=== PATIENT | female | born 1970 | race Caucasian/White ===

== ENCOUNTER 2019-02-11 16:23 | Inpatient (IN) | payer MEDICARE, MEDICAID ==
[~2019-02-11] VITALS: Ht 154.9 cm; Wt 69.9 kg
[2019-02-11] MEDS ORDERED: TRAZ-252 PO (16:30)
[2019-02-11] MEDS ORDERED: LAMO25TA25 PO (16:30)
[2019-02-11] MEDS ORDERED: BENZ1TAB10 PO (16:30)
[2019-02-11] MEDS ORDERED: QUET200T PO (16:30)
[2019-02-11] MEDS ORDERED: CHLO50 PO (16:30)
[2019-02-11] MEDS ORDERED: DIVA500T52 PO (16:30)
[2019-02-11] MEDS ORDERED: LEVO100 PO (16:30)
[2019-02-11] MEDS ORDERED: LORazepam 2 MG TABLET PO PRN (17:00)
[2019-02-11] MEDS ORDERED: HALOPERIDOL 5 MG TABLET PO PRN (17:00)
[2019-02-11] MEDS ORDERED: ZOLPIDEM TARTRATE 10 MG TABLET PO PRN (17:00)
[2019-02-11] MEDS ORDERED: INFLUENZA VIRUS VACCINE QVS 2019-20 (3YR+)/PF 60 MCG/0.5 ML SYRINGE IM ONE (18:30)
[2019-02-11 19:38] VITALS: BP 121/75
[2019-02-12 00:03] VITALS: BP 131/80
[2019-02-12 07:43] LABS: BASOPHILS % (AUTO) 0.8 % (0.0-2.0); EOSINOPHILS % (AUTO) 2.1 % (1.0-6.0); HEMATOCRIT 32.7 % (36-46); LYMPHOCYTES # (AUTO) 2.7 K/uL (1.0-4.8); LYMPHOCYTES % (AUTO) 44.6 % (22.0-44.0); MEAN CORPUSCULAR HGB CONC 33.8 G/dL (31.0-37.0); MEAN CORPUSCULAR VOLUME 86 fL (80-100); MONOCYTES # (AUTO) 0.7 K/uL (0.1-1.0); MONOCYTES % (AUTO) 11.2 % (2.0-9.0); NEUTROPHILS # (AUTO) 2.5 K/uL (1.8-7.7); NEUTROPHILS % (AUTO) 41.3 % (40.0-70.0); PLATELET COUNT (AUTO) 250 K/uL (150-450); RED BLOOD CELL COUNT(AUTO) 3.81 MIL/uL (4.00-5.20); RED CELL DISTRIBUTION WIDTH 14.9 % (11.5-14.5)
[2019-02-12 07:51] LABS: HEMOGLOBIN A1C 5.4 % (4.5-6.2)
[2019-02-12 08:00] VITALS: BP 109/64
[2019-02-12 08:13] LABS: ALANINE AMINOTRANSFERASE 11 U/L (12-78); ALBUMIN 3.3 g/dL (3.4-5.0); ALKALINE PHOSPHATASE 66 U/L (46-116); ANION GAP 4 mmol/L (8-16); ASPARTATE AMINOTRANSFERASE 11 U/L (15-37); BILIRUBIN,TOTAL 0.2 mg/dL (0.1-1.0); CALCIUM, TOTAL 8.7 mg/dL (8.8-10.5); CARBON DIOXIDE 30 mmol/L (22-29); CHLORIDE 105 mmol/L (98-107); CHOL/HDL RATIO 2.8 (3.9-5.7); CHOLESTEROL 150 mg/dL (131-200); CREATININE 0.83 mg/dL (0.60-1.30); FREE T4 (FREE THYROXINE) 1.12 ng/dL (0.76-1.46); GLOMERULAR FILTR. RATE CALC > 60 mL/min (>60); GLUCOSE,RANDOM 83 mg/dL (70-110); HCG,QUANTITATIVE 3 mIU/mL (0-6); HDL CHOLESTEROL 53 mg/dL (40-60); LDL CHOL (CALC.) 88 mg/dL (0-130); POTASSIUM 4.5 mmol/L (3.5-5.1); SODIUM SERUM 139 mmol/L (136-145); TOTAL PROTEIN, SERUM 6.5 g/dL (6.4-8.2); TRIGLYCERIDES 43 mg/dL (15-150); UREA NITROGEN, BLOOD 17 mg/dL (7-18)
[2019-02-12] MEDS ORDERED: CloNIDine HCL 0.1 MG TABLET PO PRN (13:30)
[2019-02-12] MEDS ORDERED: MAGNESIUM HYDROXIDE SUSPENSION 30 ML UDCUP PO PRN (13:30)
[2019-02-12] MEDS ORDERED: PETROLATUM,WHITE 28 GM JELLY TP PRN (13:30)
[2019-02-12] MEDS ORDERED: ONDANSETRON HCL 4 MG TABLET PO PRN (13:30)
[2019-02-12] MEDS ORDERED: IBUPROFEN 400 MG TABLET PO PRN (13:30)
[2019-02-12] MEDS ORDERED: LOPERAMIDE HCL 2 MG CAPSULE PO PRN (13:30)
[2019-02-12] MEDS ORDERED: ALBUTEROL SULFATE HFA 90 MCG/PUFF 8 GM INHALER IH PRN (13:30)
[2019-02-12] MEDS ORDERED: NICOTINE 14 MG/24 HOUR PATCH TD PRN (13:30)
[2019-02-12] MEDS ORDERED: MAG HYDROX/AL HYDROX/SIMETH ES 30 ML SUSPENSION UDCUP PO PRN (13:30)
[2019-02-12] MEDS ORDERED: GuaiFENesin/D-METHORPHAN [SUGAR-FREE] 200-20MG/10 ML SYRUP UDCUP PO PRN (13:30)
[2019-02-12] MEDS ORDERED: ACETAMINOPHEN 325 MG TABLET PO PRN (13:30)
[2019-02-12 16:09] VITALS: BP 112/68
[2019-02-12] MEDS: BENZTROPINE MESYLATE 1 MG TABLET PO SCH (16:09)
[2019-02-12] MEDS: DIVALPROEX SODIUM 500 MG ER TABLET PO SCH (16:09)
[2019-02-12] MEDS: ChlorproMAZINE HCL 50 MG TABLET PO SCH (16:34)
[2019-02-12 16:45] LABS: GLUCOMETER DEV NAME(LOC) BV2X.; GLUCOSE,POINT OF CARE 192 MG/DL (70-110)
[2019-02-12] MEDS: QUEtiapine FUMARATE 200 MG TABLET PO SCH (20:21)
[2019-02-12] MEDS: TraZODone HCL 50 MG TABLET PO SCH (20:21)
[2019-02-13 00:05] VITALS: BP 132/79
[2019-02-13] MEDS: LEVOTHYROXINE SODIUM 100 MCG TABLET PO SCH (06:43)
[2019-02-13 08:07] VITALS: BP 144/76
[2019-02-13] MEDS: ChlorproMAZINE HCL 50 MG TABLET PO SCH ×3 (08:40→16:23)
[2019-02-13] MEDS: DIVALPROEX SODIUM 500 MG ER TABLET PO SCH ×2 (08:40→16:23)
[2019-02-13] MEDS: BENZTROPINE MESYLATE 1 MG TABLET PO SCH ×3 (08:40→16:23)
[2019-02-13] MEDS: MULTIVITAMINS WITH IRON TABLET PO SCH (11:57)
[2019-02-13] MEDS: FERROUS SULFATE 325 MG EC TABLET PO SCH (11:57)
[2019-02-13 16:01] VITALS: BP 110/66
[2019-02-13] MEDS: TraZODone HCL 50 MG TABLET PO SCH (20:08)
[2019-02-13] MEDS: QUEtiapine FUMARATE 200 MG TABLET PO SCH (20:09)
[2019-02-14 05:28] VITALS: BP 104/72
[2019-02-14] MEDS: FERROUS SULFATE 325 MG EC TABLET PO SCH (06:45)
[2019-02-14] MEDS: LEVOTHYROXINE SODIUM 100 MCG TABLET PO SCH (06:45)
[2019-02-14 08:07] VITALS: BP 139/82
[2019-02-14] MEDS: BENZTROPINE MESYLATE 1 MG TABLET PO SCH ×3 (08:11→16:28)
[2019-02-14] MEDS: MULTIVITAMINS WITH IRON TABLET PO SCH (08:12)
[2019-02-14] MEDS: ChlorproMAZINE HCL 50 MG TABLET PO SCH ×3 (08:12→16:28)
[2019-02-14] MEDS: DIVALPROEX SODIUM 500 MG ER TABLET PO SCH ×2 (08:12→16:28)
[2019-02-14 16:06] VITALS: BP 102/60
[2019-02-14] MEDS: TraZODone HCL 50 MG TABLET PO SCH (20:29)
[2019-02-14] MEDS: QUEtiapine FUMARATE 200 MG TABLET PO SCH (20:30)
[2019-02-15 01:43] VITALS: BP 144/91
[2019-02-15] MEDS: LEVOTHYROXINE SODIUM 100 MCG TABLET PO SCH (06:27)
[2019-02-15] MEDS: FERROUS SULFATE 325 MG EC TABLET PO SCH (06:27)
[2019-02-15 08:12] VITALS: BP 123/83
[2019-02-15] MEDS: ChlorproMAZINE HCL 50 MG TABLET PO SCH ×3 (08:58→17:11)
[2019-02-15] MEDS: MULTIVITAMINS WITH IRON TABLET PO SCH (08:58)
[2019-02-15] MEDS: DIVALPROEX SODIUM 500 MG ER TABLET PO SCH ×2 (08:58→17:11)
[2019-02-15] MEDS: BENZTROPINE MESYLATE 1 MG TABLET PO SCH ×3 (08:58→17:11)
[2019-02-15 16:07] VITALS: BP 120/75
[2019-02-15] MEDS: QUEtiapine FUMARATE 200 MG TABLET PO SCH (21:34)
[2019-02-15] MEDS: TraZODone HCL 50 MG TABLET PO SCH (21:34)
[2019-02-16 00:13] VITALS: BP 130/77
[2019-02-16] MEDS: FERROUS SULFATE 325 MG EC TABLET PO SCH ×2 (06:33→17:14)
[2019-02-16] MEDS: LEVOTHYROXINE SODIUM 100 MCG TABLET PO SCH (06:33)
[2019-02-16] MEDS: ChlorproMAZINE HCL 50 MG TABLET PO SCH ×3 (08:26→17:13)
[2019-02-16] MEDS: BENZTROPINE MESYLATE 1 MG TABLET PO SCH ×3 (08:26→17:14)
[2019-02-16] MEDS: MULTIVITAMINS WITH IRON TABLET PO SCH (08:26)
[2019-02-16] MEDS: DIVALPROEX SODIUM 500 MG ER TABLET PO SCH ×2 (08:26→17:13)
[2019-02-16 08:38] VITALS: BP 140/73
[2019-02-16 16:01] VITALS: BP 115/75
[2019-02-16] MEDS: QUEtiapine FUMARATE 200 MG TABLET PO SCH (20:19)
[2019-02-16] MEDS: TraZODone HCL 50 MG TABLET PO SCH (20:19)
[2019-02-17 00:01] VITALS: BP 126/80
[2019-02-17] MEDS: FERROUS SULFATE 325 MG EC TABLET PO SCH ×2 (06:57→16:46)
[2019-02-17] MEDS: LEVOTHYROXINE SODIUM 100 MCG TABLET PO SCH (06:57)
[2019-02-17 08:07] VITALS: BP 104/65
[2019-02-17] MEDS: DIVALPROEX SODIUM 500 MG ER TABLET PO SCH ×2 (08:55→16:46)
[2019-02-17] MEDS: ChlorproMAZINE HCL 50 MG TABLET PO SCH ×3 (08:55→16:46)
[2019-02-17] MEDS: MULTIVITAMINS WITH IRON TABLET PO SCH (08:55)
[2019-02-17] MEDS: BENZTROPINE MESYLATE 1 MG TABLET PO SCH ×3 (08:56→16:46)
[2019-02-17] MEDS ORDERED: OMEPRAZOLE 20 MG CAPSULE PO PRN (15:30)
[2019-02-17 16:00] VITALS: BP 111/83
[2019-02-17] MEDS: QUEtiapine FUMARATE 200 MG TABLET PO SCH (20:03)
[2019-02-17] MEDS: TraZODone HCL 50 MG TABLET PO SCH (20:03)
[2019-02-18 03:11] VITALS: BP 110/71
[2019-02-18] MEDS: FERROUS SULFATE 325 MG EC TABLET PO SCH ×2 (06:36→16:25)
[2019-02-18] MEDS: LEVOTHYROXINE SODIUM 100 MCG TABLET PO SCH (06:36)
[2019-02-18 08:36] VITALS: BP 120/75
[2019-02-18] MEDS: ChlorproMAZINE HCL 50 MG TABLET PO SCH ×2 (13:00→19:26)
[2019-02-18] MEDS: BENZTROPINE MESYLATE 1 MG TABLET PO SCH ×2 (15:34→19:27)
[2019-02-18 16:33] VITALS: BP 100/68
[2019-02-18] MEDS: MULTIVITAMINS WITH IRON TABLET PO SCH (19:26)
[2019-02-18] MEDS: DIVALPROEX SODIUM 500 MG ER TABLET PO SCH ×2 (19:27→19:36)
[2019-02-18] MEDS: QUEtiapine FUMARATE 200 MG TABLET PO SCH (21:09)
[2019-02-18] MEDS: TraZODone HCL 50 MG TABLET PO SCH (21:09)
[2019-02-19 00:09] VITALS: BP 120/71
[2019-02-19] MEDS: FERROUS SULFATE 325 MG EC TABLET PO SCH ×2 (06:30→16:07)
[2019-02-19] MEDS: LEVOTHYROXINE SODIUM 100 MCG TABLET PO SCH (06:30)
[2019-02-19 08:28] VITALS: BP 110/74
[2019-02-19] MEDS: BENZTROPINE MESYLATE 1 MG TABLET PO SCH ×3 (08:49→16:07)
[2019-02-19] MEDS: ChlorproMAZINE HCL 50 MG TABLET PO SCH ×3 (08:49→16:11)
[2019-02-19] MEDS: MULTIVITAMINS WITH IRON TABLET PO SCH (08:49)
[2019-02-19] MEDS: DIVALPROEX SODIUM 500 MG ER TABLET PO SCH ×2 (08:50→16:07)
[2019-02-19 16:08] VITALS: BP 121/76
[2019-02-19] MEDS: TraZODone HCL 50 MG TABLET PO SCH (20:08)
[2019-02-19] MEDS: QUEtiapine FUMARATE 200 MG TABLET PO SCH (20:16)
[2019-02-20 00:46] VITALS: BP 100/61
[2019-02-20] MEDS: LEVOTHYROXINE SODIUM 100 MCG TABLET PO SCH (06:39)
[2019-02-20] MEDS: FERROUS SULFATE 325 MG EC TABLET PO SCH ×2 (06:39→16:30)
[2019-02-20 08:07] VITALS: BP 130/70
[2019-02-20] MEDS: BENZTROPINE MESYLATE 1 MG TABLET PO SCH ×3 (08:37→16:29)
[2019-02-20] MEDS: ChlorproMAZINE HCL 50 MG TABLET PO SCH ×3 (08:37→16:29)
[2019-02-20] MEDS: MULTIVITAMINS WITH IRON TABLET PO SCH (08:37)
[2019-02-20] MEDS: DIVALPROEX SODIUM 500 MG ER TABLET PO SCH ×2 (08:37→16:29)
[2019-02-20 16:02] VITALS: BP 125/87
[2019-02-20] MEDS: TraZODone HCL 50 MG TABLET PO SCH (20:33)
[2019-02-20] MEDS: QUEtiapine FUMARATE 200 MG TABLET PO SCH (20:34)
[2019-02-21 00:25] VITALS: BP 113/76
[2019-02-21] MEDS: LEVOTHYROXINE SODIUM 100 MCG TABLET PO SCH (06:32)
[2019-02-21] MEDS: FERROUS SULFATE 325 MG EC TABLET PO SCH ×2 (06:32→16:26)
[2019-02-21 08:18] VITALS: BP 127/67
[2019-02-21] MEDS: MULTIVITAMINS WITH IRON TABLET PO SCH (08:57)
[2019-02-21] MEDS: DIVALPROEX SODIUM 500 MG ER TABLET PO SCH ×2 (08:57→16:26)
[2019-02-21] MEDS: ChlorproMAZINE HCL 50 MG TABLET PO SCH ×3 (08:57→16:40)
[2019-02-21] MEDS: BENZTROPINE MESYLATE 1 MG TABLET PO SCH ×3 (08:57→16:26)
[2019-02-21 16:27] VITALS: BP 109/64
[2019-02-21] MEDS: TraZODone HCL 50 MG TABLET PO SCH (20:42)
[2019-02-21] MEDS: QUEtiapine FUMARATE 200 MG TABLET PO SCH (20:43)
[2019-02-22 00:27] VITALS: BP 110/70
[2019-02-22] MEDS: LEVOTHYROXINE SODIUM 100 MCG TABLET PO SCH (06:30)
[2019-02-22] MEDS: FERROUS SULFATE 325 MG EC TABLET PO SCH ×2 (07:00→17:14)
[2019-02-22 08:23] VITALS: BP 130/63
[2019-02-22] MEDS: ChlorproMAZINE HCL 50 MG TABLET PO SCH ×3 (08:36→17:39)
[2019-02-22] MEDS: BENZTROPINE MESYLATE 1 MG TABLET PO SCH ×3 (08:36→17:14)
[2019-02-22] MEDS: DIVALPROEX SODIUM 500 MG ER TABLET PO SCH ×2 (08:36→17:14)
[2019-02-22] MEDS: MULTIVITAMINS WITH IRON TABLET PO SCH (08:36)
[2019-02-22 16:04] VITALS: BP 122/88
[2019-02-22] MEDS: TraZODone HCL 50 MG TABLET PO SCH (21:03)
[2019-02-22] MEDS: QUEtiapine FUMARATE 200 MG TABLET PO SCH (21:03)
[2019-02-23 00:28] VITALS: BP 124/78
[2019-02-23] MEDS: LEVOTHYROXINE SODIUM 100 MCG TABLET PO SCH (07:14)
[2019-02-23] MEDS: FERROUS SULFATE 325 MG EC TABLET PO SCH ×2 (07:14→16:31)
[2019-02-23 08:07] VITALS: BP 139/89
[2019-02-23] MEDS: DIVALPROEX SODIUM 500 MG ER TABLET PO SCH ×2 (08:50→16:31)
[2019-02-23] MEDS: MULTIVITAMINS WITH IRON TABLET PO SCH (08:50)
[2019-02-23] MEDS: BENZTROPINE MESYLATE 1 MG TABLET PO SCH ×3 (08:50→16:31)
[2019-02-23] MEDS: ChlorproMAZINE HCL 50 MG TABLET PO SCH ×3 (08:50→16:31)
[2019-02-23 16:16] VITALS: BP 109/62
[2019-02-23] MEDS: QUEtiapine FUMARATE 200 MG TABLET PO SCH (20:28)
[2019-02-23] MEDS: TraZODone HCL 50 MG TABLET PO SCH (20:28)
[2019-02-24 05:36] VITALS: BP 149/88
[2019-02-24] MEDS: LEVOTHYROXINE SODIUM 100 MCG TABLET PO SCH (06:23)
[2019-02-24] MEDS: FERROUS SULFATE 325 MG EC TABLET PO SCH ×2 (06:56→16:30)
[2019-02-24 08:13] VITALS: BP 105/69
[2019-02-24] MEDS: BENZTROPINE MESYLATE 1 MG TABLET PO SCH ×3 (08:28→16:30)
[2019-02-24] MEDS: MULTIVITAMINS WITH IRON TABLET PO SCH (08:28)
[2019-02-24] MEDS: DIVALPROEX SODIUM 500 MG ER TABLET PO SCH ×2 (08:28→16:30)
[2019-02-24] MEDS: ChlorproMAZINE HCL 50 MG TABLET PO SCH ×3 (08:29→16:30)
[2019-02-24] MEDS: DOCUSATE SODIUM 100 MG CAPSULE PO PRN (13:05)
[2019-02-24 16:05] VITALS: BP 112/66
[2019-02-24] MEDS: QUEtiapine FUMARATE 200 MG TABLET PO SCH (20:32)
[2019-02-24] MEDS: TraZODone HCL 50 MG TABLET PO SCH (20:32)
[2019-02-25 05:46] VITALS: BP 124/78
[2019-02-25] MEDS: LEVOTHYROXINE SODIUM 100 MCG TABLET PO SCH (06:42)
[2019-02-25] MEDS: FERROUS SULFATE 325 MG EC TABLET PO SCH ×2 (06:42→16:33)
[2019-02-25 07:47] LABS: BASOPHILS % (AUTO) 0.6 % (0.0-2.0); EOSINOPHILS % (AUTO) 3.4 % (1.0-6.0); HEMATOCRIT 32.2 % (36-46); HEMOGLOBIN 10.9 g/dL (12.0-16.0); LYMPHOCYTES # (AUTO) 2.4 K/uL (1.0-4.8); LYMPHOCYTES % (AUTO) 44.7 % (22.0-44.0); MEAN CORPUSCULAR HEMOGLOBIN 29.1 pg (26.0-34.0); MEAN CORPUSCULAR HGB CONC 33.8 G/dL (31.0-37.0); MEAN CORPUSCULAR VOLUME 86 fL (80-100); MONOCYTES # (AUTO) 0.5 K/uL (0.1-1.0); MONOCYTES % (AUTO) 9.4 % (2.0-9.0); NEUTROPHILS # (AUTO) 2.3 K/uL (1.8-7.7); NEUTROPHILS % (AUTO) 41.9 % (40.0-70.0); PLATELET COUNT (AUTO) 346 K/uL (150-450); RED BLOOD CELL COUNT(AUTO) 3.75 MIL/uL (4.00-5.20); RED CELL DISTRIBUTION WIDTH 14.7 % (11.5-14.5)
[2019-02-25 08:48] VITALS: BP 128/70
[2019-02-25] MEDS: BENZTROPINE MESYLATE 1 MG TABLET PO SCH ×3 (08:52→16:33)
[2019-02-25] MEDS: DIVALPROEX SODIUM 500 MG ER TABLET PO SCH (08:52)
[2019-02-25] MEDS: ChlorproMAZINE HCL 50 MG TABLET PO SCH ×3 (08:52→16:33)
[2019-02-25] MEDS: MULTIVITAMINS WITH IRON TABLET PO SCH (08:52)
[2019-02-25 16:08] VITALS: BP 107/62
[2019-02-25] MEDS: TraZODone HCL 50 MG TABLET PO SCH (20:32)
[2019-02-25] MEDS: DIVALPROEX SODIUM 250 MG DR TABLET PO SCH (20:32)
[2019-02-25] MEDS: QUEtiapine FUMARATE 200 MG TABLET PO SCH (20:32)
[2019-02-26 00:15] VITALS: BP 129/82
[2019-02-26] MEDS: LEVOTHYROXINE SODIUM 100 MCG TABLET PO SCH (06:51)
[2019-02-26] MEDS: FERROUS SULFATE 325 MG EC TABLET PO SCH ×2 (06:51→16:01)
[2019-02-26 08:11] VITALS: BP 102/68
[2019-02-26] MEDS: MULTIVITAMINS WITH IRON TABLET PO SCH (08:56)
[2019-02-26] MEDS: BENZTROPINE MESYLATE 1 MG TABLET PO SCH ×3 (08:56→16:02)
[2019-02-26] MEDS: DIVALPROEX SODIUM 250 MG DR TABLET PO SCH ×2 (08:57→20:25)
[2019-02-26] MEDS: ChlorproMAZINE HCL 50 MG TABLET PO SCH ×3 (08:58→16:01)
[2019-02-26 16:56] VITALS: BP 111/76
[2019-02-26] MEDS: QUEtiapine FUMARATE 200 MG TABLET PO SCH (20:24)
[2019-02-26] MEDS: TraZODone HCL 50 MG TABLET PO SCH (20:24)
[2019-02-27 06:07] VITALS: BP 117/69
[2019-02-27] MEDS: LEVOTHYROXINE SODIUM 100 MCG TABLET PO SCH (06:30)
[2019-02-27] MEDS: FERROUS SULFATE 325 MG EC TABLET PO SCH ×2 (06:51→16:36)
[2019-02-27 08:17] VITALS: BP 110/64
[2019-02-27] MEDS: ChlorproMAZINE HCL 50 MG TABLET PO SCH ×3 (08:30→16:36)
[2019-02-27] MEDS: MULTIVITAMINS WITH IRON TABLET PO SCH (08:30)
[2019-02-27] MEDS: DIVALPROEX SODIUM 250 MG DR TABLET PO SCH ×2 (08:31→20:33)
[2019-02-27] MEDS: BENZTROPINE MESYLATE 1 MG TABLET PO SCH ×3 (08:31→16:36)
[2019-02-27 16:25] VITALS: BP 123/68
[2019-02-27] MEDS: TraZODone HCL 50 MG TABLET PO SCH (20:32)
[2019-02-27] MEDS: QUEtiapine FUMARATE 200 MG TABLET PO SCH (20:32)
[2019-02-28] MEDS: FERROUS SULFATE 325 MG EC TABLET PO SCH ×2 (06:31→16:35)
[2019-02-28] MEDS: LEVOTHYROXINE SODIUM 100 MCG TABLET PO SCH (06:31)
[2019-02-28 08:19] VITALS: BP 115/68
[2019-02-28] MEDS: MULTIVITAMINS WITH IRON TABLET PO SCH (09:01)
[2019-02-28] MEDS: DIVALPROEX SODIUM 250 MG DR TABLET PO SCH ×2 (09:01→20:32)
[2019-02-28] MEDS: BENZTROPINE MESYLATE 1 MG TABLET PO SCH ×3 (09:01→16:35)
[2019-02-28] MEDS: ChlorproMAZINE HCL 50 MG TABLET PO SCH ×3 (09:03→16:36)
[2019-02-28 16:15] VITALS: BP 112/72
[2019-02-28] MEDS: TraZODone HCL 50 MG TABLET PO SCH (20:32)
[2019-02-28] MEDS: QUEtiapine FUMARATE 200 MG TABLET PO SCH (20:32)
[2019-03-01 00:29] VITALS: BP 114/66
[2019-03-01] MEDS: LEVOTHYROXINE SODIUM 100 MCG TABLET PO SCH (06:22)
[2019-03-01] MEDS: FERROUS SULFATE 325 MG EC TABLET PO SCH ×2 (06:22→16:14)
[2019-03-01 08:12] VITALS: BP 121/72
[2019-03-01] MEDS: BENZTROPINE MESYLATE 1 MG TABLET PO SCH ×3 (08:14→16:13)
[2019-03-01] MEDS: MULTIVITAMINS WITH IRON TABLET PO SCH (08:14)
[2019-03-01] MEDS: ChlorproMAZINE HCL 50 MG TABLET PO SCH ×3 (08:15→16:14)
[2019-03-01] MEDS: DIVALPROEX SODIUM 250 MG DR TABLET PO SCH ×2 (08:15→20:35)
[2019-03-01 16:13] VITALS: BP 116/78
[2019-03-01] MEDS: TraZODone HCL 50 MG TABLET PO SCH (20:35)
[2019-03-01] MEDS: QUEtiapine FUMARATE 200 MG TABLET PO SCH (20:36)
[2019-03-02 00:17] VITALS: BP 111/76
[2019-03-02] MEDS: LEVOTHYROXINE SODIUM 100 MCG TABLET PO SCH (06:17)
[2019-03-02] MEDS: FERROUS SULFATE 325 MG EC TABLET PO SCH ×2 (06:17→16:34)
[2019-03-02 08:17] VITALS: BP 137/88
[2019-03-02] MEDS: BENZTROPINE MESYLATE 1 MG TABLET PO SCH ×3 (08:40→16:34)
[2019-03-02] MEDS: MULTIVITAMINS WITH IRON TABLET PO SCH (08:40)
[2019-03-02] MEDS: ChlorproMAZINE HCL 50 MG TABLET PO SCH ×3 (08:40→16:34)
[2019-03-02] MEDS: DIVALPROEX SODIUM 250 MG DR TABLET PO SCH ×2 (08:40→21:24)
[2019-03-02 16:33] VITALS: BP 113/81
[2019-03-02] MEDS: TraZODone HCL 50 MG TABLET PO SCH (21:23)
[2019-03-02] MEDS: QUEtiapine FUMARATE 200 MG TABLET PO SCH (21:23)
[2019-03-03 06:55] VITALS: BP 100/72
[2019-03-03] MEDS: FERROUS SULFATE 325 MG EC TABLET PO SCH ×2 (07:07→16:07)
[2019-03-03] MEDS: LEVOTHYROXINE SODIUM 100 MCG TABLET PO SCH (07:07)
[2019-03-03 08:13] VITALS: BP 142/92
[2019-03-03] MEDS: BENZTROPINE MESYLATE 1 MG TABLET PO SCH ×3 (08:40→16:07)
[2019-03-03] MEDS: ChlorproMAZINE HCL 50 MG TABLET PO SCH ×3 (08:40→16:07)
[2019-03-03] MEDS: DIVALPROEX SODIUM 250 MG DR TABLET PO SCH ×2 (08:40→20:20)
[2019-03-03] MEDS: MULTIVITAMINS WITH IRON TABLET PO SCH (08:42)
[2019-03-03] MEDS: DOCUSATE SODIUM 100 MG CAPSULE PO PRN (14:28)
[2019-03-03 16:27] VITALS: BP 121/88
[2019-03-03] MEDS: QUEtiapine FUMARATE 200 MG TABLET PO SCH (20:20)
[2019-03-03] MEDS: TraZODone HCL 50 MG TABLET PO SCH (20:20)
[2019-03-04] MEDS: FERROUS SULFATE 325 MG EC TABLET PO SCH ×2 (06:20→16:38)
[2019-03-04] MEDS: LEVOTHYROXINE SODIUM 100 MCG TABLET PO SCH (06:20)
[2019-03-04 07:39] VITALS: BP 120/86
[2019-03-04 08:27] VITALS: BP 127/80
[2019-03-04] MEDS: MULTIVITAMINS WITH IRON TABLET PO SCH (09:27)
[2019-03-04] MEDS: DIVALPROEX SODIUM 500 MG DR TABLET PO SCH (09:27)
[2019-03-04] MEDS: ChlorproMAZINE HCL 50 MG TABLET PO SCH ×3 (09:27→16:38)
[2019-03-04] MEDS: BENZTROPINE MESYLATE 1 MG TABLET PO SCH ×3 (09:28→16:38)
[2019-03-04 16:12] VITALS: BP 112/62
[2019-03-04] MEDS: QUEtiapine FUMARATE 200 MG TABLET PO SCH (20:37)
[2019-03-04] MEDS: TraZODone HCL 50 MG TABLET PO SCH (20:37)
[2019-03-04] MEDS: DIVALPROEX SODIUM 250 MG DR TABLET PO SCH (20:37)
[2019-03-05 00:15] VITALS: BP 121/73
[2019-03-05] MEDS: FERROUS SULFATE 325 MG EC TABLET PO SCH ×2 (06:28→16:47)
[2019-03-05] MEDS: LEVOTHYROXINE SODIUM 100 MCG TABLET PO SCH (06:28)
[2019-03-05 08:18] VITALS: BP 120/77
[2019-03-05] MEDS: MULTIVITAMINS WITH IRON TABLET PO SCH (09:30)
[2019-03-05] MEDS: ChlorproMAZINE HCL 50 MG TABLET PO SCH ×3 (09:31→16:47)
[2019-03-05] MEDS: BENZTROPINE MESYLATE 1 MG TABLET PO SCH ×3 (09:31→16:47)
[2019-03-05] MEDS: DIVALPROEX SODIUM 500 MG DR TABLET PO SCH (09:35)
[2019-03-05 16:15] VITALS: BP 119/71
[2019-03-05] MEDS: TraZODone HCL 50 MG TABLET PO SCH (20:23)
[2019-03-05] MEDS: DIVALPROEX SODIUM 250 MG DR TABLET PO SCH (20:23)
[2019-03-05] MEDS: QUEtiapine FUMARATE 200 MG TABLET PO SCH (20:25)
[2019-03-06 01:12] VITALS: BP 126/92
[2019-03-06] MEDS: LEVOTHYROXINE SODIUM 100 MCG TABLET PO SCH (07:00)
[2019-03-06] MEDS: FERROUS SULFATE 325 MG EC TABLET PO SCH ×2 (07:04→16:34)
[2019-03-06 08:13] VITALS: BP 130/78
[2019-03-06] MEDS: DIVALPROEX SODIUM 500 MG DR TABLET PO SCH (09:25)
[2019-03-06] MEDS: MULTIVITAMINS WITH IRON TABLET PO SCH (09:25)
[2019-03-06] MEDS: BENZTROPINE MESYLATE 1 MG TABLET PO SCH ×3 (09:25→16:34)
[2019-03-06] MEDS: ChlorproMAZINE HCL 50 MG TABLET PO SCH ×3 (09:25→16:34)
[2019-03-06 16:08] VITALS: BP 115/78
[2019-03-06] MEDS: DIVALPROEX SODIUM 250 MG DR TABLET PO SCH (20:39)
[2019-03-06] MEDS: TraZODone HCL 50 MG TABLET PO SCH (20:39)
[2019-03-06] MEDS: QUEtiapine FUMARATE 200 MG TABLET PO SCH (20:39)
[2019-03-07] MEDS: LEVOTHYROXINE SODIUM 100 MCG TABLET PO SCH (06:26)
[2019-03-07] MEDS: FERROUS SULFATE 325 MG EC TABLET PO SCH ×2 (06:27→16:18)
[2019-03-07 08:20] VITALS: BP 135/64
[2019-03-07] MEDS: ChlorproMAZINE HCL 50 MG TABLET PO SCH ×3 (08:44→16:17)
[2019-03-07] MEDS: DIVALPROEX SODIUM 500 MG DR TABLET PO SCH (08:44)
[2019-03-07] MEDS: BENZTROPINE MESYLATE 1 MG TABLET PO SCH ×3 (08:44→16:17)
[2019-03-07] MEDS: MULTIVITAMINS WITH IRON TABLET PO SCH (08:44)
[2019-03-07 16:12] VITALS: BP 119/73
[2019-03-07] MEDS: DIVALPROEX SODIUM 250 MG DR TABLET PO SCH (20:20)
[2019-03-07] MEDS: QUEtiapine FUMARATE 200 MG TABLET PO SCH (20:20)
[2019-03-07] MEDS: TraZODone HCL 50 MG TABLET PO SCH (20:21)
[2019-03-08 00:31] VITALS: BP 112/63
[2019-03-08] MEDS: FERROUS SULFATE 325 MG EC TABLET PO SCH ×2 (07:02→17:18)
[2019-03-08] MEDS: LEVOTHYROXINE SODIUM 100 MCG TABLET PO SCH (07:02)
[2019-03-08 08:11] VITALS: BP 114/62
[2019-03-08] MEDS: MULTIVITAMINS WITH IRON TABLET PO SCH (09:46)
[2019-03-08] MEDS: DIVALPROEX SODIUM 500 MG DR TABLET PO SCH (09:47)
[2019-03-08] MEDS: BENZTROPINE MESYLATE 1 MG TABLET PO SCH ×3 (09:47→17:18)
[2019-03-08] MEDS: ChlorproMAZINE HCL 50 MG TABLET PO SCH ×3 (09:47→17:19)
[2019-03-08 16:36] VITALS: BP 116/71
[2019-03-08] MEDS: QUEtiapine FUMARATE 200 MG TABLET PO SCH (20:42)
[2019-03-08] MEDS: DIVALPROEX SODIUM 250 MG DR TABLET PO SCH (20:42)
[2019-03-08] MEDS: TraZODone HCL 50 MG TABLET PO SCH (20:43)
[2019-03-09 05:33] VITALS: BP 106/71
[2019-03-09] MEDS: LEVOTHYROXINE SODIUM 100 MCG TABLET PO SCH (07:00)
[2019-03-09] MEDS: FERROUS SULFATE 325 MG EC TABLET PO SCH ×2 (07:00→16:38)
[2019-03-09 08:51] VITALS: BP 124/76
[2019-03-09] MEDS: DIVALPROEX SODIUM 500 MG DR TABLET PO SCH (08:52)
[2019-03-09] MEDS: ChlorproMAZINE HCL 50 MG TABLET PO SCH ×3 (08:52→16:37)
[2019-03-09] MEDS: MULTIVITAMINS WITH IRON TABLET PO SCH (08:52)
[2019-03-09] MEDS: BENZTROPINE MESYLATE 1 MG TABLET PO SCH ×3 (08:52→16:37)
[2019-03-09 16:16] VITALS: BP 114/80
[2019-03-09] MEDS: QUEtiapine FUMARATE 200 MG TABLET PO SCH (20:35)
[2019-03-09] MEDS: TraZODone HCL 50 MG TABLET PO SCH (20:35)
[2019-03-09] MEDS: DIVALPROEX SODIUM 250 MG DR TABLET PO SCH (20:36)
[2019-03-10 01:43] VITALS: BP 83/54
[2019-03-10] MEDS: LEVOTHYROXINE SODIUM 100 MCG TABLET PO SCH (07:12)
[2019-03-10] MEDS: FERROUS SULFATE 325 MG EC TABLET PO SCH ×2 (07:12→16:30)
[2019-03-10 08:13] VITALS: BP 119/81
[2019-03-10] MEDS: BENZTROPINE MESYLATE 1 MG TABLET PO SCH ×3 (08:55→16:30)
[2019-03-10] MEDS: MULTIVITAMINS WITH IRON TABLET PO SCH (08:55)
[2019-03-10] MEDS: ChlorproMAZINE HCL 50 MG TABLET PO SCH ×3 (08:55→16:30)
[2019-03-10] MEDS: DIVALPROEX SODIUM 500 MG DR TABLET PO SCH (08:57)
[2019-03-10 16:10] VITALS: BP 110/68
[2019-03-10] MEDS: TraZODone HCL 50 MG TABLET PO SCH (20:32)
[2019-03-10] MEDS: DIVALPROEX SODIUM 250 MG DR TABLET PO SCH (20:32)
[2019-03-10] MEDS: QUEtiapine FUMARATE 200 MG TABLET PO SCH (20:32)
[2019-03-11 06:37] VITALS: BP 106/65
[2019-03-11] MEDS: LEVOTHYROXINE SODIUM 100 MCG TABLET PO SCH (06:45)
[2019-03-11] MEDS: FERROUS SULFATE 325 MG EC TABLET PO SCH ×2 (06:45→16:38)
[2019-03-11] MEDS: ChlorproMAZINE HCL 50 MG TABLET PO SCH ×3 (08:35→16:38)
[2019-03-11] MEDS: MULTIVITAMINS WITH IRON TABLET PO SCH (08:35)
[2019-03-11] MEDS: DIVALPROEX SODIUM 500 MG DR TABLET PO SCH (08:35)
[2019-03-11] MEDS: BENZTROPINE MESYLATE 1 MG TABLET PO SCH ×3 (08:35→16:38)
[2019-03-11 08:40] VITALS: BP 111/63
[2019-03-11 16:06] VITALS: BP 110/66
[2019-03-11] MEDS: TraZODone HCL 50 MG TABLET PO SCH (20:33)
[2019-03-11] MEDS: QUEtiapine FUMARATE 200 MG TABLET PO SCH (20:34)
[2019-03-11] MEDS: DIVALPROEX SODIUM 250 MG DR TABLET PO SCH (20:34)
[2019-03-12 01:15] VITALS: BP 125/86
[2019-03-12] MEDS: FERROUS SULFATE 325 MG EC TABLET PO SCH (06:26)
[2019-03-12] MEDS: LEVOTHYROXINE SODIUM 100 MCG TABLET PO SCH (06:26)
[2019-03-12 08:08] VITALS: BP 127/78
[2019-03-12] MEDS: MULTIVITAMINS WITH IRON TABLET PO SCH (08:58)
[2019-03-12] MEDS: BENZTROPINE MESYLATE 1 MG TABLET PO SCH ×2 (08:59→12:03)
[2019-03-12] MEDS: ChlorproMAZINE HCL 50 MG TABLET PO SCH ×2 (09:02→12:03)
[2019-03-12] MEDS: DIVALPROEX SODIUM 500 MG DR TABLET PO SCH (09:08)
[2019-03-12] MEDS ORDERED: BENZ1TAB10 PO (11:25)
[2019-03-12] MEDS ORDERED: CHLO50 PO (11:26)
[2019-03-12] MEDS ORDERED: VALP250C48 PO ×2 (11:31)
[2019-03-12] MEDS ORDERED: FERR-89 PO (11:31)
[2019-03-12] MEDS ORDERED: QUET200T PO (11:31)
[2019-03-12] MEDS ORDERED: TRAZ-252 PO (11:31)
[2019-03-12] MEDS ORDERED: MVITFE PO (11:32)
== END 2019-03-12 13:20 | disposition home or self-care (01) | DRG 885 ==
LOC: B2X 17:24
DX: F20.0 Paranoid schizophrenia (principal); D64.9 Anemia, unspecified; E03.9 Hypothyroidism, unspecified; G47.00 Insomnia, unspecified; K21.9 Gastro-esophageal reflux disease without esophagitis; K59.00 Constipation, unspecified; Z79.899 Other long term (current) drug therapy; Z91.19 Patient's noncompliance with other medical treatment and regimen; Z23 Encounter for immunization
CPT/HCPCS: 83036; 84439; 84443; 90686

== ENCOUNTER 2019-07-18 17:59 | Inpatient (IN) | payer MEDICARE, MEDICAID ==
[~2019-07-18] VITALS: Ht 162.6 cm; Wt 72.9 kg
[~2019-07-18 17:59] MED LIST: BENZ1TAB10 PO; CHLO50TA41 PO; FERR-89 PO; LEVO100 PO; MVITFE PO; QUET200T PO; TRAZ-252 PO; VALP250C48 PO
[2019-07-18 18:05] VITALS: BP 130/60
[2019-07-18] MEDS ORDERED: CHLO50TA41 PO (18:21)
[2019-07-18] MEDS ORDERED: QUET200T PO (18:21)
[2019-07-18] MEDS ORDERED: DIVA-80 PO (18:21)
[2019-07-18] MEDS ORDERED: LAMO25TA25 PO (18:21)
[2019-07-18] MEDS ORDERED: HALOPERIDOL 5 MG TABLET PO PRN (18:45)
[2019-07-18 19:53] VITALS: BP 118/79
[2019-07-19 00:19] VITALS: BP 109/72
[2019-07-19] MEDS: LEVOTHYROXINE SODIUM 100 MCG TABLET PO SCH (06:10)
[2019-07-19] MEDS ORDERED: MAGNESIUM HYDROXIDE SUSPENSION 30 ML UDCUP PO PRN (07:45)
[2019-07-19] MEDS ORDERED: MAG HYDROX/AL HYDROX/SIMETH ES 30 ML SUSPENSION UDCUP PO PRN (07:45)
[2019-07-19] MEDS ORDERED: GuaiFENesin/D-METHORPHAN [SUGAR-FREE] 200-20MG/10 ML SYRUP UDCUP PO PRN (07:45)
[2019-07-19] MEDS ORDERED: PETROLATUM,WHITE 28 GM JELLY TP PRN (07:45)
[2019-07-19] MEDS ORDERED: NICOTINE 14 MG/24 HOUR PATCH TD PRN (07:45)
[2019-07-19] MEDS ORDERED: ACETAMINOPHEN 325 MG TABLET PO PRN (07:45)
[2019-07-19] MEDS ORDERED: ONDANSETRON HCL 4 MG TABLET PO PRN (07:45)
[2019-07-19] MEDS ORDERED: IBUPROFEN 400 MG TABLET PO PRN (07:45)
[2019-07-19] MEDS ORDERED: LOPERAMIDE HCL 2 MG CAPSULE PO PRN (07:45)
[2019-07-19] MEDS ORDERED: DOCUSATE SODIUM 100 MG CAPSULE PO PRN (07:45)
[2019-07-19] MEDS ORDERED: ALBUTEROL SULFATE HFA 90 MCG/PUFF 8 GM INHALER IH PRN (07:45)
[2019-07-19] MEDS ORDERED: CloNIDine HCL 0.1 MG TABLET PO PRN (07:45)
[2019-07-19 08:02] VITALS: BP 135/80
[2019-07-19 08:06] LABS: BASOPHILS % (AUTO) 0.7 % (0.0-2.0); EOSINOPHILS % (AUTO) 3.2 % (1.0-6.0); HEMATOCRIT 35.3 % (36-46); HEMOGLOBIN 11.7 g/dL (12.0-16.0); LYMPHOCYTES # (AUTO) 2.1 K/uL (1.0-4.8); MEAN CORPUSCULAR HEMOGLOBIN 29.2 pg (26.0-34.0); MEAN CORPUSCULAR HGB CONC 33.3 G/dL (31.0-37.0); MEAN CORPUSCULAR VOLUME 88 fL (80-100); MONOCYTES # (AUTO) 0.5 K/uL (0.1-1.0); MONOCYTES % (AUTO) 11.1 % (2.0-9.0); NEUTROPHILS # (AUTO) 1.8 K/uL (1.8-7.7); PLATELET COUNT (AUTO) 275 K/uL (150-450); RED BLOOD CELL COUNT(AUTO) 4.03 MIL/uL (4.00-5.20); RED CELL DISTRIBUTION WIDTH 13.7 % (11.5-14.5)
[2019-07-19 08:29] LABS: HEMOGLOBIN A1C 5.4 % (3.8-5.6)
[2019-07-19 08:51] LABS: ALANINE AMINOTRANSFERASE 14 U/L (12-78); ALBUMIN 3.5 g/dL (3.4-5.0); ALKALINE PHOSPHATASE 70 U/L (46-116); ANION GAP 7 mmol/L (8-16); ASPARTATE AMINOTRANSFERASE 9 U/L (15-37); BILIRUBIN,TOTAL 0.2 mg/dL (0.1-1.0); CALCIUM, TOTAL 8.8 mg/dL (8.8-10.5); CARBON DIOXIDE 29 mmol/L (22-29); CHLORIDE 105 mmol/L (98-107); CHOL/HDL RATIO 2.9 (3.9-5.7); CHOLESTEROL 139 mg/dL (131-200); CREATININE 0.85 mg/dL (0.60-1.30); FREE T4 (FREE THYROXINE) 1.05 ng/dL (0.76-1.46); GLOMERULAR FILTR. RATE CALC > 60 mL/min (>60); GLUCOSE,RANDOM 84 mg/dL (70-110); HCG,QUANTITATIVE 3 mIU/mL (0-6); HDL CHOLESTEROL 48 mg/dL (40-60); LDL CHOL (CALC.) 80 mg/dL (0-130); POTASSIUM 4.4 mmol/L (3.5-5.1); SODIUM SERUM 141 mmol/L (136-145); THYROID STIMULATING HORMONE 1.86 uIU/mL (0.36-3.74); TOTAL PROTEIN, SERUM 7.1 g/dL (6.4-8.2); TRIGLYCERIDES 53 mg/dL (15-150); UREA NITROGEN, BLOOD 12 mg/dL (7-18); VALPROIC ACID 109 mcg/mL (50-100)
[2019-07-19] MEDS: BENZTROPINE MESYLATE 1 MG TABLET PO SCH ×2 (12:28→17:08)
[2019-07-19] MEDS: QUEtiapine FUMARATE 200 MG TABLET PO SCH ×2 (12:28→20:39)
[2019-07-19] MEDS: DIVALPROEX SODIUM 500 MG ER TABLET PO SCH ×2 (12:28→17:08)
[2019-07-19 16:23] VITALS: BP 111/74
[2019-07-19] MEDS: TraZODone HCL 50 MG TABLET PO SCH (20:39)
[2019-07-20 00:40] VITALS: BP 121/87
[2019-07-20] MEDS: LEVOTHYROXINE SODIUM 100 MCG TABLET PO SCH (06:24)
[2019-07-20] MEDS: BENZTROPINE MESYLATE 1 MG TABLET PO SCH ×2 (08:24→16:31)
[2019-07-20] MEDS: DIVALPROEX SODIUM 500 MG ER TABLET PO SCH ×2 (08:24→16:31)
[2019-07-20] MEDS: QUEtiapine FUMARATE 200 MG TABLET PO SCH ×2 (08:26→20:15)
[2019-07-20 09:24] VITALS: BP 105/66
[2019-07-20 16:03] VITALS: BP 102/60
[2019-07-20] MEDS: TraZODone HCL 50 MG TABLET PO SCH (20:15)
[2019-07-21 06:16] VITALS: BP 111/75
[2019-07-21] MEDS: LEVOTHYROXINE SODIUM 100 MCG TABLET PO SCH (07:02)
[2019-07-21 08:07] VITALS: BP 102/70
[2019-07-21] MEDS: DIVALPROEX SODIUM 500 MG ER TABLET PO SCH ×2 (08:09→16:26)
[2019-07-21] MEDS: BENZTROPINE MESYLATE 1 MG TABLET PO SCH ×2 (08:09→16:26)
[2019-07-21] MEDS: QUEtiapine FUMARATE 200 MG TABLET PO SCH ×2 (08:09→20:32)
[2019-07-21 16:04] VITALS: BP 118/85
[2019-07-21] MEDS: TraZODone HCL 50 MG TABLET PO SCH (20:31)
[2019-07-22] MEDS: LEVOTHYROXINE SODIUM 100 MCG TABLET PO SCH (06:07)
[2019-07-22 06:43] VITALS: BP 128/74
[2019-07-22] MEDS: DIVALPROEX SODIUM 500 MG ER TABLET PO SCH ×2 (08:21→16:31)
[2019-07-22] MEDS: BENZTROPINE MESYLATE 1 MG TABLET PO SCH ×2 (08:21→16:32)
[2019-07-22] MEDS: QUEtiapine FUMARATE 200 MG TABLET PO SCH ×2 (08:21→20:28)
[2019-07-22 08:29] VITALS: BP 100/70
[2019-07-22 16:29] VITALS: BP 106/70
[2019-07-22] MEDS: TraZODone HCL 50 MG TABLET PO SCH (20:28)
[2019-07-23 00:08] VITALS: BP 104/72
[2019-07-23] MEDS: LEVOTHYROXINE SODIUM 100 MCG TABLET PO SCH (07:07)
[2019-07-23 08:09] VITALS: BP_SYST 102; BP_SYST 122; BP_DIAS 67; BP_DIAS 70
[2019-07-23] MEDS: DIVALPROEX SODIUM 500 MG ER TABLET PO SCH ×2 (08:35→16:39)
[2019-07-23] MEDS: BENZTROPINE MESYLATE 1 MG TABLET PO SCH ×2 (08:35→16:39)
[2019-07-23] MEDS: QUEtiapine FUMARATE 200 MG TABLET PO SCH ×2 (08:35→20:38)
[2019-07-23 16:10] VITALS: BP 126/79
[2019-07-23] MEDS: TraZODone HCL 50 MG TABLET PO SCH (20:37)
[2019-07-24 00:10] VITALS: BP 122/70
[2019-07-24] MEDS: LEVOTHYROXINE SODIUM 100 MCG TABLET PO SCH (07:07)
[2019-07-24 08:23] VITALS: BP 110/68
[2019-07-24] MEDS: DIVALPROEX SODIUM 500 MG ER TABLET PO SCH ×2 (08:35→16:29)
[2019-07-24] MEDS: BENZTROPINE MESYLATE 1 MG TABLET PO SCH ×2 (08:35→16:29)
[2019-07-24] MEDS: QUEtiapine FUMARATE 200 MG TABLET PO SCH ×2 (08:35→20:43)
[2019-07-24 16:45] VITALS: BP 119/75
[2019-07-24] MEDS: TraZODone HCL 50 MG TABLET PO SCH (20:43)
[2019-07-25 00:27] VITALS: BP 120/72
[2019-07-25] MEDS: LEVOTHYROXINE SODIUM 100 MCG TABLET PO SCH (06:45)
[2019-07-25 08:10] VITALS: BP 107/64
[2019-07-25] MEDS: BENZTROPINE MESYLATE 1 MG TABLET PO SCH ×2 (08:23→17:00)
[2019-07-25] MEDS: DIVALPROEX SODIUM 500 MG ER TABLET PO SCH ×2 (08:23→17:00)
[2019-07-25] MEDS: MULTIVITAMINS WITH IRON TABLET PO SCH (08:23)
[2019-07-25] MEDS: QUEtiapine FUMARATE 200 MG TABLET PO SCH ×2 (08:23→20:43)
[2019-07-25 16:04] VITALS: BP 121/78
[2019-07-25] MEDS: TraZODone HCL 50 MG TABLET PO SCH (20:43)
[2019-07-25] MEDS: ZOLPIDEM TARTRATE 10 MG TABLET PO PRN (22:35)
[2019-07-26 00:52] VITALS: BP 124/81
[2019-07-26] MEDS: LEVOTHYROXINE SODIUM 100 MCG TABLET PO SCH (06:30)
[2019-07-26 08:06] VITALS: BP 99/74
[2019-07-26] MEDS: DIVALPROEX SODIUM 500 MG ER TABLET PO SCH ×2 (08:27→16:41)
[2019-07-26] MEDS: MULTIVITAMINS WITH IRON TABLET PO SCH (08:27)
[2019-07-26] MEDS: QUEtiapine FUMARATE 200 MG TABLET PO SCH ×2 (08:27→20:30)
[2019-07-26] MEDS: BENZTROPINE MESYLATE 1 MG TABLET PO SCH ×2 (08:27→16:41)
[2019-07-26 16:09] VITALS: BP 101/67
[2019-07-26] MEDS: TraZODone HCL 50 MG TABLET PO SCH (20:30)
[2019-07-27 00:47] VITALS: BP 108/79
[2019-07-27] MEDS: ZOLPIDEM TARTRATE 10 MG TABLET PO PRN (00:50)
[2019-07-27] MEDS: LEVOTHYROXINE SODIUM 100 MCG TABLET PO SCH (07:03)
[2019-07-27 08:33] VITALS: BP 121/81
[2019-07-27] MEDS: DIVALPROEX SODIUM 500 MG ER TABLET PO SCH ×2 (08:34→16:01)
[2019-07-27] MEDS: QUEtiapine FUMARATE 200 MG TABLET PO SCH ×2 (08:34→20:13)
[2019-07-27] MEDS: MULTIVITAMINS WITH IRON TABLET PO SCH (08:34)
[2019-07-27] MEDS: BENZTROPINE MESYLATE 1 MG TABLET PO SCH ×2 (08:34→16:02)
[2019-07-27 16:19] VITALS: BP 127/79
[2019-07-27] MEDS: TraZODone HCL 50 MG TABLET PO SCH (20:13)
[2019-07-28 00:12] VITALS: BP 124/80
[2019-07-28] MEDS: LEVOTHYROXINE SODIUM 100 MCG TABLET PO SCH (06:38)
[2019-07-28 08:00] VITALS: BP 128/90
[2019-07-28] MEDS: MULTIVITAMINS WITH IRON TABLET PO SCH (08:19)
[2019-07-28] MEDS: DIVALPROEX SODIUM 500 MG ER TABLET PO SCH ×2 (08:20→16:54)
[2019-07-28] MEDS: BENZTROPINE MESYLATE 1 MG TABLET PO SCH ×2 (08:20→16:54)
[2019-07-28] MEDS: QUEtiapine FUMARATE 200 MG TABLET PO SCH ×2 (08:20→20:38)
[2019-07-28 16:08] VITALS: BP_SYST 104; BP_SYST 132; BP_DIAS 74; BP_DIAS 75
[2019-07-28] MEDS: TraZODone HCL 50 MG TABLET PO SCH (20:38)
[2019-07-29 00:24] VITALS: BP 128/78
[2019-07-29] MEDS: LEVOTHYROXINE SODIUM 100 MCG TABLET PO SCH (06:29)
[2019-07-29] MEDS: DIVALPROEX SODIUM 500 MG ER TABLET PO SCH ×2 (08:52→16:54)
[2019-07-29] MEDS: QUEtiapine FUMARATE 200 MG TABLET PO SCH ×2 (08:52→20:47)
[2019-07-29] MEDS: MULTIVITAMINS WITH IRON TABLET PO SCH (08:52)
[2019-07-29] MEDS: BENZTROPINE MESYLATE 1 MG TABLET PO SCH ×2 (09:15→16:53)
[2019-07-29 09:33] VITALS: BP 105/67
[2019-07-29 16:19] VITALS: BP 110/70
[2019-07-29] MEDS: TraZODone HCL 50 MG TABLET PO SCH (20:47)
[2019-07-30 00:09] VITALS: BP 113/75
[2019-07-30] MEDS: LEVOTHYROXINE SODIUM 100 MCG TABLET PO SCH (06:15)
[2019-07-30] MEDS: QUEtiapine FUMARATE 200 MG TABLET PO SCH ×2 (08:15→20:32)
[2019-07-30] MEDS: DIVALPROEX SODIUM 500 MG ER TABLET PO SCH ×2 (08:15→16:42)
[2019-07-30] MEDS: MULTIVITAMINS WITH IRON TABLET PO SCH (08:15)
[2019-07-30] MEDS: BENZTROPINE MESYLATE 1 MG TABLET PO SCH ×2 (08:15→16:42)
[2019-07-30 08:21] VITALS: BP 110/73
[2019-07-30 16:07] VITALS: BP 121/79
[2019-07-30] MEDS: TraZODone HCL 50 MG TABLET PO SCH (20:32)
[2019-07-31 04:15] VITALS: BP 114/68
[2019-07-31] MEDS: LEVOTHYROXINE SODIUM 100 MCG TABLET PO SCH (06:47)
[2019-07-31] MEDS: MULTIVITAMINS WITH IRON TABLET PO SCH (08:01)
[2019-07-31] MEDS: DIVALPROEX SODIUM 500 MG ER TABLET PO SCH ×2 (08:01→17:24)
[2019-07-31] MEDS: BENZTROPINE MESYLATE 1 MG TABLET PO SCH ×2 (08:01→17:24)
[2019-07-31] MEDS: QUEtiapine FUMARATE 200 MG TABLET PO SCH ×2 (08:01→20:43)
[2019-07-31 08:51] VITALS: BP 103/76
[2019-07-31 16:20] VITALS: BP 110/70
[2019-07-31] MEDS: LORazepam 2 MG TABLET PO PRN (17:26)
[2019-07-31] MEDS: TraZODone HCL 50 MG TABLET PO SCH (20:42)
[2019-08-01] MEDS: LEVOTHYROXINE SODIUM 100 MCG TABLET PO SCH (07:00)
[2019-08-01 08:16] VITALS: BP 129/73
[2019-08-01] MEDS: DIVALPROEX SODIUM 500 MG ER TABLET PO SCH ×2 (08:29→16:34)
[2019-08-01] MEDS: QUEtiapine FUMARATE 200 MG TABLET PO SCH ×2 (08:29→20:28)
[2019-08-01] MEDS: MULTIVITAMINS WITH IRON TABLET PO SCH (08:29)
[2019-08-01] MEDS: BENZTROPINE MESYLATE 1 MG TABLET PO SCH ×2 (08:29→16:34)
[2019-08-01 16:05] VITALS: BP 107/77
[2019-08-01] MEDS: TraZODone HCL 50 MG TABLET PO SCH (20:28)
[2019-08-02 01:47] VITALS: BP 112/62
[2019-08-02] MEDS: LEVOTHYROXINE SODIUM 100 MCG TABLET PO SCH (06:32)
[2019-08-02 08:11] VITALS: BP 102/66
[2019-08-02] MEDS: BENZTROPINE MESYLATE 1 MG TABLET PO SCH ×2 (08:33→16:35)
[2019-08-02] MEDS: QUEtiapine FUMARATE 200 MG TABLET PO SCH ×2 (08:33→20:39)
[2019-08-02] MEDS: MULTIVITAMINS WITH IRON TABLET PO SCH (08:33)
[2019-08-02] MEDS: DIVALPROEX SODIUM 500 MG ER TABLET PO SCH ×2 (08:33→16:35)
[2019-08-02 16:28] VITALS: BP 108/80
[2019-08-02] MEDS: LORazepam 2 MG TABLET PO PRN (17:44)
[2019-08-02] MEDS: TraZODone HCL 50 MG TABLET PO SCH (20:39)
[2019-08-03 02:20] VITALS: BP 108/82
[2019-08-03] MEDS: LORazepam 2 MG TABLET PO PRN (02:22)
[2019-08-03] MEDS: LEVOTHYROXINE SODIUM 100 MCG TABLET PO SCH (06:45)
[2019-08-03] MEDS: QUEtiapine FUMARATE 200 MG TABLET PO SCH ×2 (08:17→20:25)
[2019-08-03] MEDS: BENZTROPINE MESYLATE 1 MG TABLET PO SCH ×2 (08:18→16:37)
[2019-08-03] MEDS: DIVALPROEX SODIUM 500 MG ER TABLET PO SCH ×2 (08:18→16:37)
[2019-08-03] MEDS: MULTIVITAMINS WITH IRON TABLET PO SCH (08:18)
[2019-08-03 08:31] VITALS: BP 120/82
[2019-08-03 16:00] VITALS: BP 127/80
[2019-08-03] MEDS: TraZODone HCL 50 MG TABLET PO SCH (20:24)
[2019-08-04] VITALS: BP 118/75
[2019-08-04] MEDS: LEVOTHYROXINE SODIUM 100 MCG TABLET PO SCH (06:19)
[2019-08-04] MEDS: DIVALPROEX SODIUM 500 MG ER TABLET PO SCH ×2 (08:36→16:41)
[2019-08-04] MEDS: BENZTROPINE MESYLATE 1 MG TABLET PO SCH ×2 (08:36→16:41)
[2019-08-04] MEDS: MULTIVITAMINS WITH IRON TABLET PO SCH (08:36)
[2019-08-04] MEDS: QUEtiapine FUMARATE 200 MG TABLET PO SCH ×2 (08:36→20:33)
[2019-08-04 08:45] VITALS: BP 107/68
[2019-08-04 16:39] VITALS: BP_SYST 108; BP_SYST 110; BP_DIAS 66; BP_DIAS 73
[2019-08-04] MEDS: TraZODone HCL 50 MG TABLET PO SCH (20:32)
[2019-08-05 01:22] VITALS: BP 104/74
[2019-08-05] MEDS: LEVOTHYROXINE SODIUM 100 MCG TABLET PO SCH (05:55)
[2019-08-05 08:13] VITALS: BP 129/69
[2019-08-05] MEDS: QUEtiapine FUMARATE 200 MG TABLET PO SCH ×2 (08:46→21:03)
[2019-08-05] MEDS: MULTIVITAMINS WITH IRON TABLET PO SCH (08:47)
[2019-08-05] MEDS: BENZTROPINE MESYLATE 1 MG TABLET PO SCH ×2 (08:47→17:15)
[2019-08-05] MEDS: DIVALPROEX SODIUM 500 MG ER TABLET PO SCH ×2 (08:47→17:15)
[2019-08-05 16:18] VITALS: BP 100/68
[2019-08-05] MEDS: TraZODone HCL 50 MG TABLET PO SCH (21:03)
[2019-08-06] VITALS: BP 116/73
[2019-08-06] MEDS: LEVOTHYROXINE SODIUM 100 MCG TABLET PO SCH (06:47)
[2019-08-06] MEDS ORDERED: TRAZ-252 PO (07:05)
[2019-08-06] MEDS ORDERED: BENZ1TAB10 PO (07:05)
[2019-08-06] MEDS ORDERED: QUET200T29 PO (07:05)
[2019-08-06] MEDS ORDERED: DIVA-80 PO (07:05)
[2019-08-06 08:19] VITALS: BP 119/79
[2019-08-06] MEDS: MULTIVITAMINS WITH IRON TABLET PO SCH (08:25)
[2019-08-06] MEDS: DIVALPROEX SODIUM 500 MG ER TABLET PO SCH (08:25)
[2019-08-06] MEDS: BENZTROPINE MESYLATE 1 MG TABLET PO SCH (08:25)
[2019-08-06] MEDS: QUEtiapine FUMARATE 200 MG TABLET PO SCH (08:26)
== END 2019-08-06 13:46 | disposition home or self-care (01) | DRG 885 ==
LOC: B2X 18:57
DX: F25.1 Schizoaffective disorder, depressive type (principal); N17.9 Acute kidney failure, unspecified; F79 Unspecified intellectual disabilities; M62.82 Rhabdomyolysis; R45.851 Suicidal ideations; I10 Essential (primary) hypertension; J44.9 Chronic obstructive pulmonary disease, unspecified; E78.5 Hyperlipidemia, unspecified; D64.9 Anemia, unspecified; F19.10 Other psychoactive substance abuse, uncomplicated; E03.9 Hypothyroidism, unspecified; K21.9 Gastro-esophageal reflux disease without esophagitis; F41.9 Anxiety disorder, unspecified
CPT/HCPCS: 83036; 84439; 84443

== ENCOUNTER 2021-05-17 17:12 | Inpatient (IN) | payer MEDICARE, MEDICAID ==
[~2021-05-17] VITALS: Ht 162.6 cm; Wt 73.7 kg
[~2021-05-17 17:12] MED LIST changes: -BENZ1TAB10 PO; +BENZ1TAB96 PO; -CHLO50TA41 PO; +DIVA-80 PO; -FERR-89 PO; -MVITFE PO; -QUET200T PO; +QUET200T30 PO; -VALP250C48 PO
[2021-05-17] MEDS ORDERED: ZOLPIDEM TARTRATE 10 MG TABLET PO PRN (18:00)
[2021-05-17] MEDS ORDERED: HALOPERIDOL 5 MG TABLET PO PRN (18:00)
[2021-05-17] MEDS ORDERED: LORazepam 2 MG TABLET PO PRN (18:00)
[2021-05-17 18:07] LABS: GLUCOMETER DEV NAME(LOC) POC.BV
[2021-05-17 18:26] VITALS: BP 107/67
[2021-05-18 00:28] VITALS: BP 110/68
[2021-05-18 08:12] LABS: BASOPHILS % (AUTO) 0.8 % (0.0-2.0); EOSINOPHILS % (AUTO) 2.3 % (1.0-6.0); HEMATOCRIT 34.4 % (36-46); HEMOGLOBIN 11.7 g/dL (12.0-16.0); LYMPHOCYTES # (AUTO) 3.1 K/uL (1.0-4.8); LYMPHOCYTES % (AUTO) 47.2 % (22.0-44.0); MEAN CORPUSCULAR HEMOGLOBIN 29.3 pg (26.0-34.0); MEAN CORPUSCULAR HGB CONC 33.9 G/dL (31.0-37.0); MEAN CORPUSCULAR VOLUME 86 fL (80-100); MONOCYTES # (AUTO) 0.7 K/uL (0.1-1.0); MONOCYTES % (AUTO) 11.4 % (2.0-9.0); NEUTROPHILS # (AUTO) 2.5 K/uL (1.8-7.7); NEUTROPHILS % (AUTO) 38.3 % (40.0-70.0); PLATELET COUNT (AUTO) 279 K/uL (150-450); RED BLOOD CELL COUNT(AUTO) 3.98 MIL/uL (4.00-5.20); RED CELL DISTRIBUTION WIDTH 15.5 % (11.5-14.5)
[2021-05-18 08:43] LABS: HEMOGLOBIN A1C 5.8 % (3.8-5.6)
[2021-05-18 08:44] LABS: ALBUMIN 3.2 g/dL (3.4-5.0); BILIRUBIN,TOTAL 0.2 mg/dL (0.1-1.0); CALCIUM, TOTAL 8.7 mg/dL (8.8-10.5); CHOL/HDL RATIO 3.1 (3.9-5.7); CREATININE 1.09 mg/dL (0.60-1.30); FREE T4 (FREE THYROXINE) 0.7 ng/dL (0.76-1.46); POTASSIUM 4.5 mmol/L (3.5-5.1); THYROID STIMULATING HORMONE 5.46 uIU/mL (0.36-3.74); TOTAL PROTEIN, SERUM 7.4 g/dL (6.4-8.2)
[2021-05-18 09:17] VITALS: BP 112/66
[2021-05-18] MEDS: QUEtiapine FUMARATE 200 MG TABLET PO SCH ×2 (12:41→20:36)
[2021-05-18] MEDS: DIVALPROEX SODIUM 500 MG DR TABLET PO SCH ×2 (12:41→16:43)
[2021-05-18] MEDS ORDERED: LOPERAMIDE HCL 2 MG CAPSULE PO PRN (13:30)
[2021-05-18] MEDS ORDERED: ACETAMINOPHEN 325 MG TABLET PO PRN (13:30)
[2021-05-18] MEDS ORDERED: ALBUTEROL SULFATE HFA 90 MCG/PUFF 8 GM INHALER IH PRN (13:30)
[2021-05-18] MEDS ORDERED: GuaiFENesin/D-METHORPHAN [SUGAR-FREE] 200-20MG/10 ML SYRUP UDCUP PO PRN (13:30)
[2021-05-18] MEDS ORDERED: DOCUSATE SODIUM 100 MG CAPSULE PO PRN (13:30)
[2021-05-18] MEDS ORDERED: ONDANSETRON HCL 4 MG TABLET PO PRN (13:30)
[2021-05-18] MEDS ORDERED: MAG HYDROX/AL HYDROX/SIMETH ES 30 ML SUSPENSION UDCUP PO PRN (13:30)
[2021-05-18] MEDS ORDERED: CloNIDine HCL 0.1 MG TABLET PO PRN (13:30)
[2021-05-18] MEDS ORDERED: PETROLATUM,WHITE 28 GM JELLY TP PRN (13:30)
[2021-05-18] MEDS ORDERED: IBUPROFEN 400 MG TABLET PO PRN (13:30)
[2021-05-18] MEDS ORDERED: NICOTINE 14 MG/24 HOUR PATCH TD PRN (13:30)
[2021-05-18] MEDS ORDERED: MAGNESIUM HYDROXIDE SUSPENSION 30 ML UDCUP PO PRN (13:30)
[2021-05-18 16:19] VITALS: BP 133/91
[2021-05-18] MEDS: BENZTROPINE MESYLATE 1 MG TABLET PO SCH (16:43)
[2021-05-18] MEDS: TraZODone HCL 50 MG TABLET PO SCH (20:36)
[2021-05-19] MEDS: LEVOTHYROXINE SODIUM 100 MCG TABLET PO SCH (07:00)
[2021-05-19 08:09] VITALS: BP 101/72
[2021-05-19] MEDS: BENZTROPINE MESYLATE 1 MG TABLET PO SCH ×2 (09:06→16:29)
[2021-05-19] MEDS: QUEtiapine FUMARATE 200 MG TABLET PO SCH ×2 (09:06→20:42)
[2021-05-19] MEDS: DIVALPROEX SODIUM 500 MG DR TABLET PO SCH ×3 (09:06→16:29)
[2021-05-19 16:03] VITALS: BP 124/80
[2021-05-19] MEDS: TraZODone HCL 50 MG TABLET PO SCH (20:41)
[2021-05-20 00:25] VITALS: BP 119/76
[2021-05-20] MEDS: LEVOTHYROXINE SODIUM 100 MCG TABLET PO SCH (06:48)
[2021-05-20] MEDS: BENZTROPINE MESYLATE 1 MG TABLET PO SCH ×2 (08:19→16:12)
[2021-05-20] MEDS: QUEtiapine FUMARATE 200 MG TABLET PO SCH ×2 (08:19→20:50)
[2021-05-20] MEDS: DIVALPROEX SODIUM 500 MG DR TABLET PO SCH ×3 (08:19→16:12)
[2021-05-20 08:36] VITALS: BP 110/68
[2021-05-20 16:26] VITALS: BP 127/83
[2021-05-20] MEDS: TraZODone HCL 50 MG TABLET PO SCH (20:50)
[2021-05-21 01:15] VITALS: BP 112/88
[2021-05-21] MEDS: LEVOTHYROXINE SODIUM 100 MCG TABLET PO SCH (06:44)
[2021-05-21 08:10] VITALS: BP 118/84
[2021-05-21] MEDS: DIVALPROEX SODIUM 500 MG DR TABLET PO SCH ×3 (08:41→16:12)
[2021-05-21] MEDS: BENZTROPINE MESYLATE 1 MG TABLET PO SCH ×2 (08:41→16:11)
[2021-05-21] MEDS: QUEtiapine FUMARATE 200 MG TABLET PO SCH ×2 (08:42→20:01)
[2021-05-21 17:02] VITALS: BP 109/73
[2021-05-21] MEDS: TraZODone HCL 50 MG TABLET PO SCH (20:01)
[2021-05-22 05:27] VITALS: BP 110/86
[2021-05-22] MEDS: LEVOTHYROXINE SODIUM 100 MCG TABLET PO SCH (06:35)
[2021-05-22 06:51] LABS: GLUCOMETER DEV NAME(LOC) POC.BV
[2021-05-22 08:09] VITALS: BP 118/75
[2021-05-22] MEDS: QUEtiapine FUMARATE 200 MG TABLET PO SCH ×2 (08:22→20:13)
[2021-05-22] MEDS: DIVALPROEX SODIUM 500 MG DR TABLET PO SCH ×3 (08:22→16:14)
[2021-05-22] MEDS: BENZTROPINE MESYLATE 1 MG TABLET PO SCH ×2 (08:23→16:14)
[2021-05-22 16:10] VITALS: BP 107/63
[2021-05-22] MEDS: TraZODone HCL 50 MG TABLET PO SCH (20:13)
[2021-05-23 05:32] VITALS: BP 110/66
[2021-05-23] MEDS: LEVOTHYROXINE SODIUM 100 MCG TABLET PO SCH (06:35)
[2021-05-23 08:09] VITALS: BP 135/77
[2021-05-23] MEDS: QUEtiapine FUMARATE 200 MG TABLET PO SCH ×2 (08:51→20:14)
[2021-05-23] MEDS: BENZTROPINE MESYLATE 1 MG TABLET PO SCH ×2 (08:51→16:37)
[2021-05-23] MEDS: DIVALPROEX SODIUM 500 MG DR TABLET PO SCH ×3 (08:51→16:37)
[2021-05-23 16:16] VITALS: BP 128/83
[2021-05-23] MEDS: TraZODone HCL 50 MG TABLET PO SCH (20:14)
[2021-05-24 00:29] VITALS: BP 118/78
[2021-05-24] MEDS: LEVOTHYROXINE SODIUM 100 MCG TABLET PO SCH (06:57)
[2021-05-24 08:48] VITALS: BP 109/74
[2021-05-24] MEDS: DIVALPROEX SODIUM 500 MG DR TABLET PO SCH ×3 (09:17→17:48)
[2021-05-24] MEDS: BENZTROPINE MESYLATE 1 MG TABLET PO SCH ×2 (09:17→17:48)
[2021-05-24] MEDS: QUEtiapine FUMARATE 200 MG TABLET PO SCH ×2 (09:17→20:22)
[2021-05-24 16:12] VITALS: BP 104/66
[2021-05-24] MEDS: TraZODone HCL 50 MG TABLET PO SCH (20:22)
[2021-05-25 06:28] VITALS: BP 118/63
[2021-05-25] MEDS: LEVOTHYROXINE SODIUM 100 MCG TABLET PO SCH (07:09)
[2021-05-25 08:11] VITALS: BP 115/72
[2021-05-25] MEDS: BENZTROPINE MESYLATE 1 MG TABLET PO SCH ×2 (09:09→16:14)
[2021-05-25] MEDS: QUEtiapine FUMARATE 200 MG TABLET PO SCH ×2 (09:09→20:09)
[2021-05-25] MEDS: DIVALPROEX SODIUM 500 MG DR TABLET PO SCH ×3 (09:09→16:14)
[2021-05-25 16:21] VITALS: BP 122/84
[2021-05-25] MEDS: TraZODone HCL 50 MG TABLET PO SCH (20:09)
[2021-05-26 00:09] VITALS: BP 117/80
[2021-05-26] MEDS: LEVOTHYROXINE SODIUM 100 MCG TABLET PO SCH (06:07)
[2021-05-26 08:16] VITALS: BP 110/76
[2021-05-26] MEDS: DIVALPROEX SODIUM 500 MG DR TABLET PO SCH ×3 (09:00→17:09)
[2021-05-26] MEDS: QUEtiapine FUMARATE 200 MG TABLET PO SCH ×2 (09:00→21:12)
[2021-05-26] MEDS: BENZTROPINE MESYLATE 1 MG TABLET PO SCH ×2 (09:00→17:09)
[2021-05-26 16:09] VITALS: BP 119/64
[2021-05-26] MEDS: TraZODone HCL 50 MG TABLET PO SCH (21:12)
[2021-05-27 03:53] VITALS: BP 105/68
[2021-05-27] MEDS: LEVOTHYROXINE SODIUM 100 MCG TABLET PO SCH (06:56)
[2021-05-27 08:13] VITALS: BP 102/72
[2021-05-27] MEDS: QUEtiapine FUMARATE 200 MG TABLET PO SCH ×2 (08:26→20:28)
[2021-05-27] MEDS: BENZTROPINE MESYLATE 1 MG TABLET PO SCH ×2 (08:26→16:29)
[2021-05-27] MEDS: DIVALPROEX SODIUM 500 MG DR TABLET PO SCH ×3 (08:26→16:29)
[2021-05-27 16:12] VITALS: BP 99/68
[2021-05-27] MEDS: TraZODone HCL 50 MG TABLET PO SCH (20:29)
[2021-05-28 00:49] VITALS: BP 101/65
[2021-05-28] MEDS: LEVOTHYROXINE SODIUM 100 MCG TABLET PO SCH (06:29)
[2021-05-28 08:30] VITALS: BP 133/60
[2021-05-28] MEDS: BENZTROPINE MESYLATE 1 MG TABLET PO SCH ×2 (08:39→16:44)
[2021-05-28] MEDS: QUEtiapine FUMARATE 200 MG TABLET PO SCH ×2 (08:39→20:37)
[2021-05-28] MEDS: DIVALPROEX SODIUM 500 MG DR TABLET PO SCH ×3 (08:39→16:44)
[2021-05-28 16:15] VITALS: BP 116/72
[2021-05-28] MEDS: TraZODone HCL 50 MG TABLET PO SCH (20:37)
[2021-05-29 01:32] VITALS: BP 116/75
[2021-05-29] MEDS: LEVOTHYROXINE SODIUM 100 MCG TABLET PO SCH (06:44)
[2021-05-29] MEDS: QUEtiapine FUMARATE 200 MG TABLET PO SCH ×2 (07:30→20:48)
[2021-05-29] MEDS: DIVALPROEX SODIUM 500 MG DR TABLET PO SCH ×3 (07:30→16:57)
[2021-05-29] MEDS: BENZTROPINE MESYLATE 1 MG TABLET PO SCH ×2 (07:30→16:57)
[2021-05-29 08:34] VITALS: BP 126/82
[2021-05-29 10:26] LABS: GLUCOMETER DEV NAME(LOC) POC.BV
[2021-05-29 16:25] VITALS: BP 97/72
[2021-05-29] MEDS: TraZODone HCL 50 MG TABLET PO SCH (20:48)
[2021-05-30 00:43] VITALS: BP 103/69
[2021-05-30] MEDS: LEVOTHYROXINE SODIUM 100 MCG TABLET PO SCH (06:26)
[2021-05-30] MEDS: BENZTROPINE MESYLATE 1 MG TABLET PO SCH ×2 (07:26→16:54)
[2021-05-30] MEDS: DIVALPROEX SODIUM 500 MG DR TABLET PO SCH ×3 (07:26→16:54)
[2021-05-30] MEDS: QUEtiapine FUMARATE 200 MG TABLET PO SCH ×2 (07:26→20:27)
[2021-05-30 08:09] VITALS: BP 140/80
[2021-05-30 16:00] VITALS: BP 117/70
[2021-05-30] MEDS: TraZODone HCL 50 MG TABLET PO SCH (20:27)
[2021-05-31 01:03] VITALS: BP 109/72
[2021-05-31] MEDS: LEVOTHYROXINE SODIUM 100 MCG TABLET PO SCH (06:26)
[2021-05-31] MEDS: QUEtiapine FUMARATE 200 MG TABLET PO SCH ×2 (08:09→20:34)
[2021-05-31] MEDS: BENZTROPINE MESYLATE 1 MG TABLET PO SCH ×2 (08:09→16:41)
[2021-05-31] MEDS: DIVALPROEX SODIUM 500 MG DR TABLET PO SCH ×3 (08:09→16:41)
[2021-05-31 08:12] VITALS: BP 126/72
[2021-05-31 16:09] VITALS: BP 115/76
[2021-05-31] MEDS: TraZODone HCL 50 MG TABLET PO SCH (20:34)
[2021-06-01 00:16] VITALS: BP 119/73
[2021-06-01] MEDS: LEVOTHYROXINE SODIUM 100 MCG TABLET PO SCH (06:50)
[2021-06-01 08:12] VITALS: BP 117/76
[2021-06-01] MEDS: QUEtiapine FUMARATE 200 MG TABLET PO SCH ×2 (08:15→20:29)
[2021-06-01] MEDS: DIVALPROEX SODIUM 500 MG DR TABLET PO SCH ×3 (08:15→16:43)
[2021-06-01] MEDS: BENZTROPINE MESYLATE 1 MG TABLET PO SCH ×2 (08:15→16:43)
[2021-06-01 16:33] VITALS: BP 116/74
[2021-06-01] MEDS: TraZODone HCL 50 MG TABLET PO SCH (20:29)
[2021-06-02 05:49] VITALS: BP 128/77
[2021-06-02] MEDS: LEVOTHYROXINE SODIUM 100 MCG TABLET PO SCH (06:21)
[2021-06-02 08:15] VITALS: BP 126/74
[2021-06-02] MEDS: BENZTROPINE MESYLATE 1 MG TABLET PO SCH ×2 (08:38→16:48)
[2021-06-02] MEDS: DIVALPROEX SODIUM 500 MG DR TABLET PO SCH ×3 (08:38→16:48)
[2021-06-02] MEDS: QUEtiapine FUMARATE 200 MG TABLET PO SCH ×2 (08:38→20:34)
[2021-06-02 16:14] VITALS: BP 112/71
[2021-06-02] MEDS: TraZODone HCL 50 MG TABLET PO SCH (20:33)
[2021-06-03 00:25] VITALS: BP 123/74
[2021-06-03] MEDS: LEVOTHYROXINE SODIUM 100 MCG TABLET PO SCH (06:13)
[2021-06-03] MEDS: QUEtiapine FUMARATE 200 MG TABLET PO SCH ×2 (07:55→20:12)
[2021-06-03] MEDS: DIVALPROEX SODIUM 500 MG DR TABLET PO SCH ×3 (07:56→16:12)
[2021-06-03] MEDS: BENZTROPINE MESYLATE 1 MG TABLET PO SCH ×2 (07:56→16:12)
[2021-06-03 09:14] VITALS: BP 110/70
[2021-06-03 16:09] VITALS: BP 132/82
[2021-06-03] MEDS: TraZODone HCL 50 MG TABLET PO SCH (20:12)
[2021-06-04 05:39] VITALS: BP 115/62
[2021-06-04] MEDS: LEVOTHYROXINE SODIUM 100 MCG TABLET PO SCH (06:24)
[2021-06-04] MEDS: BENZTROPINE MESYLATE 1 MG TABLET PO SCH ×2 (08:10→16:47)
[2021-06-04] MEDS: QUEtiapine FUMARATE 200 MG TABLET PO SCH ×2 (08:10→20:34)
[2021-06-04] MEDS: DIVALPROEX SODIUM 500 MG DR TABLET PO SCH ×3 (08:11→16:47)
[2021-06-04 08:16] VITALS: BP 108/66
[2021-06-04 16:08] VITALS: BP 110/66
[2021-06-04] MEDS: TraZODone HCL 50 MG TABLET PO SCH (20:34)
[2021-06-05 00:44] VITALS: BP 111/62
[2021-06-05] MEDS: LEVOTHYROXINE SODIUM 100 MCG TABLET PO SCH (06:05)
[2021-06-05 08:01] LABS: GLUCOMETER DEV NAME(LOC) POC.BV
[2021-06-05 08:20] VITALS: BP 132/77
[2021-06-05] MEDS: DIVALPROEX SODIUM 500 MG DR TABLET PO SCH ×3 (08:45→16:24)
[2021-06-05] MEDS: QUEtiapine FUMARATE 200 MG TABLET PO SCH ×2 (08:45→20:14)
[2021-06-05] MEDS: BENZTROPINE MESYLATE 1 MG TABLET PO SCH ×2 (08:45→16:24)
[2021-06-05 16:13] VITALS: BP 109/68
[2021-06-05] MEDS: TraZODone HCL 50 MG TABLET PO SCH (20:14)
[2021-06-06] MEDS: LEVOTHYROXINE SODIUM 100 MCG TABLET PO SCH (06:43)
[2021-06-06 07:23] VITALS: BP 112/70
[2021-06-06 08:25] VITALS: BP 116/60
[2021-06-06] MEDS: QUEtiapine FUMARATE 200 MG TABLET PO SCH ×2 (08:39→20:43)
[2021-06-06] MEDS: BENZTROPINE MESYLATE 1 MG TABLET PO SCH ×2 (08:39→16:59)
[2021-06-06] MEDS: DIVALPROEX SODIUM 500 MG DR TABLET PO SCH ×3 (08:40→16:59)
[2021-06-06 16:10] VITALS: BP 118/76
[2021-06-06] MEDS: TraZODone HCL 50 MG TABLET PO SCH (20:43)
[2021-06-07] MEDS: LEVOTHYROXINE SODIUM 100 MCG TABLET PO SCH (06:58)
[2021-06-07 06:59] VITALS: BP 109/76
[2021-06-07] MEDS: BENZTROPINE MESYLATE 1 MG TABLET PO SCH ×2 (08:13→17:36)
[2021-06-07] MEDS: DIVALPROEX SODIUM 500 MG DR TABLET PO SCH ×3 (08:13→17:36)
[2021-06-07] MEDS: QUEtiapine FUMARATE 200 MG TABLET PO SCH ×2 (08:13→21:00)
[2021-06-07 10:08] VITALS: BP 130/81
[2021-06-07 16:06] VITALS: BP 112/75
[2021-06-07] MEDS: TraZODone HCL 50 MG TABLET PO SCH (21:00)
[2021-06-08] MEDS: LEVOTHYROXINE SODIUM 100 MCG TABLET PO SCH (06:01)
[2021-06-08 06:06] VITALS: BP 111/78
[2021-06-08 08:11] VITALS: BP 118/67
[2021-06-08] MEDS: DIVALPROEX SODIUM 500 MG DR TABLET PO SCH ×3 (08:31→16:38)
[2021-06-08] MEDS: BENZTROPINE MESYLATE 1 MG TABLET PO SCH ×2 (08:31→16:38)
[2021-06-08] MEDS: QUEtiapine FUMARATE 200 MG TABLET PO SCH ×2 (08:42→20:18)
[2021-06-08 16:45] VITALS: BP 113/78
[2021-06-08] MEDS: TraZODone HCL 50 MG TABLET PO SCH (20:18)
[2021-06-09 06:27] VITALS: BP 125/85
[2021-06-09] MEDS: LEVOTHYROXINE SODIUM 100 MCG TABLET PO SCH (06:33)
[2021-06-09] MEDS: QUEtiapine FUMARATE 200 MG TABLET PO SCH ×2 (07:29→20:32)
[2021-06-09] MEDS: BENZTROPINE MESYLATE 1 MG TABLET PO SCH ×2 (07:29→16:38)
[2021-06-09] MEDS: DIVALPROEX SODIUM 500 MG DR TABLET PO SCH ×3 (07:29→16:39)
[2021-06-09 08:07] VITALS: BP 131/71
[2021-06-09 16:10] VITALS: BP 127/75
[2021-06-09] MEDS: TraZODone HCL 50 MG TABLET PO SCH (20:32)
[2021-06-10 05:27] VITALS: BP 128/84
[2021-06-10] MEDS: LEVOTHYROXINE SODIUM 100 MCG TABLET PO SCH (06:36)
[2021-06-10 08:00] VITALS: BP 126/84
[2021-06-10] MEDS: QUEtiapine FUMARATE 200 MG TABLET PO SCH ×2 (08:02→20:32)
[2021-06-10] MEDS: DIVALPROEX SODIUM 500 MG DR TABLET PO SCH ×3 (08:02→17:05)
[2021-06-10] MEDS: BENZTROPINE MESYLATE 1 MG TABLET PO SCH ×2 (08:02→17:06)
[2021-06-10 17:22] VITALS: BP 116/66
[2021-06-10] MEDS: TraZODone HCL 50 MG TABLET PO SCH (20:32)
[2021-06-11 01:24] VITALS: BP 112/68
[2021-06-11] MEDS: LEVOTHYROXINE SODIUM 100 MCG TABLET PO SCH (06:23)
[2021-06-11] MEDS: QUEtiapine FUMARATE 200 MG TABLET PO SCH ×2 (07:55→20:31)
[2021-06-11] MEDS: BENZTROPINE MESYLATE 1 MG TABLET PO SCH ×2 (07:55→17:11)
[2021-06-11] MEDS: DIVALPROEX SODIUM 500 MG DR TABLET PO SCH ×3 (07:56→17:11)
[2021-06-11 08:31] VITALS: BP 107/76
[2021-06-11 15:29] VITALS: BP 109/60
[2021-06-11 17:04] VITALS: BP 109/60
[2021-06-11] MEDS: TraZODone HCL 50 MG TABLET PO SCH (20:31)
[2021-06-12 01:25] VITALS: BP 110/62
[2021-06-12] MEDS: LEVOTHYROXINE SODIUM 100 MCG TABLET PO SCH (06:35)
[2021-06-12] MEDS: BENZTROPINE MESYLATE 1 MG TABLET PO SCH ×2 (07:52→16:55)
[2021-06-12] MEDS: QUEtiapine FUMARATE 200 MG TABLET PO SCH ×2 (07:52→20:44)
[2021-06-12] MEDS: DIVALPROEX SODIUM 500 MG DR TABLET PO SCH ×3 (07:52→16:55)
[2021-06-12 08:47] VITALS: BP 120/75
[2021-06-12 10:12] LABS: GLUCOMETER DEV NAME(LOC) POC.BV
[2021-06-12 16:05] VITALS: BP 117/73
[2021-06-12] MEDS: TraZODone HCL 50 MG TABLET PO SCH (20:44)
[2021-06-13] MEDS: LEVOTHYROXINE SODIUM 100 MCG TABLET PO SCH (06:39)
[2021-06-13 07:00] VITALS: BP 132/64
[2021-06-13] MEDS: BENZTROPINE MESYLATE 1 MG TABLET PO SCH ×2 (07:34→16:48)
[2021-06-13] MEDS: QUEtiapine FUMARATE 200 MG TABLET PO SCH ×2 (07:34→20:32)
[2021-06-13] MEDS: DIVALPROEX SODIUM 500 MG DR TABLET PO SCH ×3 (07:34→16:48)
[2021-06-13 08:06] VITALS: BP 109/69
[2021-06-13 16:07] VITALS: BP 125/74
[2021-06-13] MEDS: TraZODone HCL 50 MG TABLET PO SCH (20:32)
[2021-06-14 02:55] VITALS: BP 136/69
[2021-06-14] MEDS: LEVOTHYROXINE SODIUM 100 MCG TABLET PO SCH (06:44)
[2021-06-14 08:15] VITALS: BP 124/68
[2021-06-14] MEDS: BENZTROPINE MESYLATE 1 MG TABLET PO SCH ×2 (08:55→16:36)
[2021-06-14] MEDS: QUEtiapine FUMARATE 200 MG TABLET PO SCH ×2 (08:55→20:32)
[2021-06-14] MEDS: DIVALPROEX SODIUM 500 MG DR TABLET PO SCH ×3 (08:55→16:36)
[2021-06-14 16:25] VITALS: BP 108/83
[2021-06-14] MEDS: TraZODone HCL 50 MG TABLET PO SCH (20:32)
[2021-06-15] MEDS: LEVOTHYROXINE SODIUM 100 MCG TABLET PO SCH (06:35)
[2021-06-15 06:47] VITALS: BP 106/63
[2021-06-15] MEDS: BENZTROPINE MESYLATE 1 MG TABLET PO SCH ×2 (07:58→16:31)
[2021-06-15] MEDS: DIVALPROEX SODIUM 500 MG DR TABLET PO SCH ×3 (07:58→16:31)
[2021-06-15] MEDS: QUEtiapine FUMARATE 200 MG TABLET PO SCH ×2 (07:58→20:44)
[2021-06-15 08:29] VITALS: BP 104/63
[2021-06-15 16:45] VITALS: BP 109/80
[2021-06-15] MEDS: TraZODone HCL 50 MG TABLET PO SCH (20:44)
[2021-06-16 00:55] VITALS: BP 108/77
[2021-06-16] MEDS: LEVOTHYROXINE SODIUM 100 MCG TABLET PO SCH (06:17)
[2021-06-16] MEDS: QUEtiapine FUMARATE 200 MG TABLET PO SCH ×2 (07:37→20:52)
[2021-06-16] MEDS: DIVALPROEX SODIUM 500 MG DR TABLET PO SCH ×3 (07:37→16:36)
[2021-06-16] MEDS: BENZTROPINE MESYLATE 1 MG TABLET PO SCH ×2 (07:37→16:36)
[2021-06-16 08:14] VITALS: BP 107/63
[2021-06-16 16:17] VITALS: BP 119/86
[2021-06-16] MEDS: TraZODone HCL 50 MG TABLET PO SCH (20:52)
[2021-06-17 01:46] VITALS: BP 129/69
[2021-06-17] MEDS: LEVOTHYROXINE SODIUM 100 MCG TABLET PO SCH (06:50)
[2021-06-17 08:12] VITALS: BP 115/79
[2021-06-17] MEDS: BENZTROPINE MESYLATE 1 MG TABLET PO SCH ×2 (08:46→16:16)
[2021-06-17] MEDS: QUEtiapine FUMARATE 200 MG TABLET PO SCH ×2 (08:46→20:48)
[2021-06-17] MEDS: DIVALPROEX SODIUM 500 MG DR TABLET PO SCH ×3 (08:46→16:16)
[2021-06-17 16:15] VITALS: BP 117/63
[2021-06-17] MEDS: TraZODone HCL 50 MG TABLET PO SCH (20:48)
[2021-06-18 06:05] VITALS: BP 105/77
[2021-06-18] MEDS: LEVOTHYROXINE SODIUM 100 MCG TABLET PO SCH (06:26)
[2021-06-18 08:15] VITALS: BP 110/72
[2021-06-18] MEDS: DIVALPROEX SODIUM 500 MG DR TABLET PO SCH ×2 (08:29→13:24)
[2021-06-18] MEDS: BENZTROPINE MESYLATE 1 MG TABLET PO SCH (08:29)
[2021-06-18] MEDS: QUEtiapine FUMARATE 200 MG TABLET PO SCH (08:29)
[2021-06-18] MEDS ORDERED: LEVO100 PO (10:47)
[2021-06-18] MEDS ORDERED: DIVA-80 PO (10:47)
[2021-06-18] MEDS ORDERED: TRAZ-252 PO (10:47)
[2021-06-18] MEDS ORDERED: QUET200T30 PO (10:47)
[2021-06-18] MEDS ORDERED: BENZ1TAB96 PO (10:47)
== END 2021-06-18 14:10 | disposition home or self-care (01) | DRG 885 ==
LOC: B2X 17:52
PROVIDERS: ADMIT Psychiatry & Neurology Psychiatry; ATTEND Psychiatry & Neurology Psychiatry
DX: F20.0 Paranoid schizophrenia (principal); E03.9 Hypothyroidism, unspecified; K21.9 Gastro-esophageal reflux disease without esophagitis; D64.9 Anemia, unspecified; R79.89 Other specified abnormal findings of blood chemistry; Z20.822 Contact with and (suspected) exposure to COVID-19; F19.10 Other psychoactive substance abuse, uncomplicated; Z79.899 Other long term (current) drug therapy; Z59.00 Homelessness unspecified
CPT/HCPCS: 80053; 80061; 80164; 83036; 84439; 84443; 85025; 87081

== ENCOUNTER 2021-07-31 17:21 | Inpatient (IN) | payer MEDICARE, MEDICAID ==
[~2021-07-31] VITALS: Ht 162.6 cm; Wt 74.5 kg
[2021-07-31 18:32] LABS: BASOPHILS % (AUTO) 0.4 % (0.0-2.0); EOSINOPHILS % (AUTO) 1.9 % (1.0-6.0); HEMATOCRIT 32.2 % (36-46); HEMOGLOBIN 10.7 g/dL (12.0-16.0); MEAN CORPUSCULAR HEMOGLOBIN 29.5 pg (26.0-34.0); MEAN CORPUSCULAR HGB CONC 33.4 G/dL (31.0-37.0); MEAN CORPUSCULAR VOLUME 89 fL (80-100); MONOCYTES # (AUTO) 0.8 K/uL (0.1-1.0); MONOCYTES % (AUTO) 14.2 % (2.0-9.0); NEUTROPHILS # (AUTO) 1.7 K/uL (1.8-7.7); NEUTROPHILS % (AUTO) 30.3 % (40.0-70.0); PLATELET COUNT (AUTO) 166 K/uL (150-450); RED BLOOD CELL COUNT(AUTO) 3.64 MIL/uL (4.00-5.20); RED CELL DISTRIBUTION WIDTH 15.6 % (11.5-14.5)
[2021-07-31 18:40] LABS: ANION GAP 6 mmol/L (8-16); CALCIUM, TOTAL 8.7 mg/dL (8.8-10.5); CARBON DIOXIDE 29 mmol/L (22-29); CHLORIDE 105 mmol/L (98-107); CREATININE 1.04 mg/dL (0.60-1.30); GLUCOSE,RANDOM 102 mg/dL (70-110); POTASSIUM 4.3 mmol/L (3.5-5.1); SODIUM SERUM 140 mmol/L (136-145); UREA NITROGEN, BLOOD 19 mg/dL (7-18)
[2021-07-31 18:42] LABS: GLOMERULAR FILTR. RATE CALC 55 mL/min (>60)
[2021-07-31] MEDS ORDERED: ZOLPIDEM TARTRATE 10 MG TABLET PO PRN (18:45)
[2021-07-31] MEDS ORDERED: QUEtiapine FUMARATE 100 MG TABLET PO PRN (18:45)
[2021-07-31] MEDS ORDERED: LORazepam 2 MG TABLET PO PRN (18:45)
[2021-07-31 18:51] LABS: ALANINE AMINOTRANSFERASE 13 U/L (12-78); ALBUMIN 2.9 g/dL (3.4-5.0); ALKALINE PHOSPHATASE 60 U/L (46-116); ASPARTATE AMINOTRANSFERASE 13 U/L (15-37); BILIRUBIN,TOTAL 0.2 mg/dL (0.1-1.0); HCG,QUANTITATIVE 4 mIU/mL (0-6); TOTAL PROTEIN, SERUM 6.8 g/dL (6.4-8.2)
[2021-07-31 18:59] LABS: COVID AG,FIA SOURCE NASOPHARYNGEAL
[2021-07-31 19:14] LABS: LYMPHOCYTES % (AUTO) 53.2 % (22.0-44.0)
[2021-08-01 03:15] VITALS: BP 135/78
[2021-08-01 03:21] VITALS: BP 135/78
[2021-08-01] MEDS ORDERED: ACETAMINOPHEN 325 MG TABLET PO PRN (07:00)
[2021-08-01] MEDS ORDERED: ONDANSETRON HCL 4 MG TABLET PO PRN (07:00)
[2021-08-01] MEDS ORDERED: DOCUSATE SODIUM 100 MG CAPSULE PO PRN (07:00)
[2021-08-01] MEDS ORDERED: CloNIDine HCL 0.1 MG TABLET PO PRN (07:00)
[2021-08-01] MEDS ORDERED: IBUPROFEN 400 MG TABLET PO PRN (07:00)
[2021-08-01] MEDS ORDERED: PETROLATUM,WHITE 28 GM JELLY TP PRN (07:00)
[2021-08-01] MEDS ORDERED: MAG HYDROX/AL HYDROX/SIMETH ES 30 ML SUSPENSION UDCUP PO PRN (07:00)
[2021-08-01] MEDS: LEVOTHYROXINE SODIUM 100 MCG TABLET PO SCH (07:00)
[2021-08-01] MEDS ORDERED: MAGNESIUM HYDROXIDE SUSPENSION 30 ML UDCUP PO PRN (07:00)
[2021-08-01] MEDS ORDERED: NICOTINE 14 MG/24 HOUR PATCH TD PRN (07:00)
[2021-08-01] MEDS ORDERED: LOPERAMIDE HCL 2 MG CAPSULE PO PRN (07:00)
[2021-08-01] MEDS ORDERED: GuaiFENesin/D-METHORPHAN [SUGAR-FREE] 200-20MG/10 ML SYRUP UDCUP PO PRN (07:00)
[2021-08-01] MEDS ORDERED: ALBUTEROL SULFATE HFA 90 MCG/PUFF 8 GM INHALER IH PRN (07:00)
[2021-08-01 10:35] VITALS: BP 121/79
[2021-08-01] MEDS: DIVALPROEX SODIUM 250 MG DR TABLET PO SCH (20:13)
[2021-08-01] MEDS: QUEtiapine FUMARATE 200 MG TABLET PO SCH (20:14)
[2021-08-01] MEDS: TraZODone HCL 50 MG TABLET PO SCH (20:14)
[2021-08-01] MEDS: BENZTROPINE MESYLATE 1 MG TABLET PO SCH (20:14)
[2021-08-02] MEDS: LEVOTHYROXINE SODIUM 100 MCG TABLET PO SCH (06:39)
[2021-08-02 09:01] VITALS: BP 123/86
[2021-08-02] MEDS: DIVALPROEX SODIUM 250 MG DR TABLET PO SCH ×2 (10:11→20:03)
[2021-08-02] MEDS: BENZTROPINE MESYLATE 1 MG TABLET PO SCH ×2 (10:11→20:03)
[2021-08-02] MEDS: QUEtiapine FUMARATE 200 MG TABLET PO SCH ×2 (10:11→20:03)
[2021-08-02] MEDS: TraZODone HCL 50 MG TABLET PO SCH (20:03)
[2021-08-03] MEDS: LEVOTHYROXINE SODIUM 100 MCG TABLET PO SCH (06:30)
[2021-08-03 07:31] LABS: APPEARANCE,URINE CLEAR (CLEAR); BILIRUBIN,URINE NEGATIVE (NEGATIVE); GLUCOSE, URINE (UA) NEGATIVE (NEGATIVE); KETONES,URINE NEGATIVE (NEGATIVE); LEUKOCYTE ESTERASE ,URINE NEGATIVE (NEGATIVE); NITRATE,URINE NEGATIVE (NEGATIVE); OCCULT BLOOD,URINE NEGATIVE (NEGATIVE); PH,URINE 5.5 (5.0-8.0); PROTEIN,URINE NEGATIVE (NEGATIVE); SPECIFIC GRAVITIY, URINE 1.015 (1.003-1.030); UROBILINOGEN,URINE <=1.0 mg/dL (<=1.0)
[2021-08-03 07:37] LABS: AMPHET/METH SCREEN,URINE NEGATIVE (NEGATIVE); BARBITURATE SCREEN, URINE NEGATIVE (NEGATIVE); BENZODIAZEPINES SCREEN,URINE NEGATIVE (NEGATIVE); CANNABINOID SCREEN,URINE NEGATIVE (NEGATIVE); COCAINE SCREEN,URINE NEGATIVE (NEGATIVE); METHADONE SCREEN, URINE NEGATIVE (NEGATIVE); OPIATE SCREEN,URINE NEGATIVE (NEGATIVE)
[2021-08-03 07:38] LABS: PHENCYCLIDINE SCREEN,URINE NEGATIVE (NEGATIVE)
[2021-08-03 08:15] VITALS: BP 100/65
[2021-08-03] MEDS: DIVALPROEX SODIUM 250 MG DR TABLET PO SCH ×2 (09:47→20:02)
[2021-08-03] MEDS: BENZTROPINE MESYLATE 1 MG TABLET PO SCH ×2 (09:47→20:03)
[2021-08-03] MEDS: QUEtiapine FUMARATE 200 MG TABLET PO SCH ×2 (09:48→20:02)
[2021-08-03 16:00] VITALS: BP 106/71
[2021-08-03] MEDS: TraZODone HCL 50 MG TABLET PO SCH (20:03)
[2021-08-04] MEDS: LEVOTHYROXINE SODIUM 100 MCG TABLET PO SCH (06:43)
[2021-08-04 08:44] VITALS: BP 128/90
[2021-08-04] MEDS: BENZTROPINE MESYLATE 1 MG TABLET PO SCH ×2 (08:46→20:50)
[2021-08-04] MEDS: DIVALPROEX SODIUM 250 MG DR TABLET PO SCH ×2 (08:47→20:50)
[2021-08-04] MEDS: QUEtiapine FUMARATE 200 MG TABLET PO SCH ×2 (08:47→20:50)
[2021-08-04 16:22] VITALS: BP 120/67
[2021-08-04] MEDS ORDERED: TUBERCULIN, PURIFIED PROTEIN DERIVATIVE 5 TU/0.1 ML SYRINGE ID ONE (18:15)
[2021-08-04] MEDS: TraZODone HCL 50 MG TABLET PO SCH (20:50)
[2021-08-05] MEDS: LEVOTHYROXINE SODIUM 100 MCG TABLET PO SCH (06:44)
[2021-08-05 08:02] VITALS: BP 108/83
[2021-08-05] MEDS: BENZTROPINE MESYLATE 1 MG TABLET PO SCH ×2 (08:56→21:25)
[2021-08-05] MEDS: QUEtiapine FUMARATE 200 MG TABLET PO SCH ×2 (08:56→21:25)
[2021-08-05] MEDS: DIVALPROEX SODIUM 250 MG DR TABLET PO SCH ×2 (08:57→21:25)
[2021-08-05 16:59] VITALS: BP 117/69
[2021-08-05] MEDS: TraZODone HCL 50 MG TABLET PO SCH (21:25)
[2021-08-06] MEDS: LEVOTHYROXINE SODIUM 100 MCG TABLET PO SCH (06:38)
[2021-08-06 08:33] VITALS: BP 106/66
[2021-08-06] MEDS: BENZTROPINE MESYLATE 1 MG TABLET PO SCH ×2 (08:48→20:31)
[2021-08-06] MEDS: DIVALPROEX SODIUM 250 MG DR TABLET PO SCH ×2 (08:49→20:31)
[2021-08-06] MEDS: QUEtiapine FUMARATE 200 MG TABLET PO SCH ×2 (08:50→20:31)
[2021-08-06 09:37] LABS: COVID AG,FIA SOURCE NASAL SWAB
[2021-08-06 17:51] VITALS: BP 109/67
[2021-08-06] MEDS: TraZODone HCL 50 MG TABLET PO SCH (20:31)
[2021-08-07] MEDS: LEVOTHYROXINE SODIUM 100 MCG TABLET PO SCH (06:53)
[2021-08-07 08:40] VITALS: BP 146/76
[2021-08-07] MEDS: QUEtiapine FUMARATE 200 MG TABLET PO SCH ×2 (10:10→21:09)
[2021-08-07] MEDS: BENZTROPINE MESYLATE 1 MG TABLET PO SCH ×2 (10:10→21:09)
[2021-08-07] MEDS: DIVALPROEX SODIUM 250 MG DR TABLET PO SCH ×2 (10:10→21:09)
[2021-08-07 16:10] VITALS: BP 123/66
[2021-08-07] MEDS: TraZODone HCL 50 MG TABLET PO SCH (21:09)
[2021-08-08] MEDS: LEVOTHYROXINE SODIUM 100 MCG TABLET PO SCH (06:37)
[2021-08-08 08:30] VITALS: BP 139/83
[2021-08-08] MEDS: DIVALPROEX SODIUM 250 MG DR TABLET PO SCH ×2 (09:10→20:51)
[2021-08-08] MEDS: BENZTROPINE MESYLATE 1 MG TABLET PO SCH ×2 (09:11→20:51)
[2021-08-08] MEDS: QUEtiapine FUMARATE 200 MG TABLET PO SCH ×2 (09:11→20:51)
[2021-08-08] MEDS: TraZODone HCL 50 MG TABLET PO SCH (20:51)
[2021-08-09 02:53] VITALS: BP 110/68
[2021-08-09] MEDS: LEVOTHYROXINE SODIUM 100 MCG TABLET PO SCH (06:20)
[2021-08-09] MEDS: BENZTROPINE MESYLATE 1 MG TABLET PO SCH ×2 (08:33→20:45)
[2021-08-09] MEDS: QUEtiapine FUMARATE 200 MG TABLET PO SCH ×2 (08:33→20:45)
[2021-08-09] MEDS: DIVALPROEX SODIUM 250 MG DR TABLET PO SCH ×2 (08:34→20:46)
[2021-08-09 11:23] VITALS: BP 138/91
[2021-08-09 17:06] LABS: CALCIUM, TOTAL 8.3 mg/dL (8.8-10.5); CREATININE 1.11 mg/dL (0.60-1.30); POTASSIUM 4.1 mmol/L (3.5-5.1)
[2021-08-09 17:08] VITALS: BP 140/65
[2021-08-09] MEDS: TraZODone HCL 50 MG TABLET PO SCH (20:45)
[2021-08-10] MEDS: LEVOTHYROXINE SODIUM 100 MCG TABLET PO SCH (07:01)
[2021-08-10] MEDS: BENZTROPINE MESYLATE 1 MG TABLET PO SCH ×2 (08:35→21:52)
[2021-08-10] MEDS: QUEtiapine FUMARATE 200 MG TABLET PO SCH ×2 (08:35→21:30)
[2021-08-10] MEDS: DIVALPROEX SODIUM 250 MG DR TABLET PO SCH ×2 (08:36→21:53)
[2021-08-10 09:00] VITALS: BP 122/79
[2021-08-10 16:00] VITALS: BP 105/73
[2021-08-10] MEDS: TraZODone HCL 50 MG TABLET PO SCH (21:54)
[2021-08-11] MEDS: LEVOTHYROXINE SODIUM 100 MCG TABLET PO SCH (06:47)
[2021-08-11 08:22] VITALS: BP 131/61
[2021-08-11] MEDS: BENZTROPINE MESYLATE 1 MG TABLET PO SCH ×2 (08:40→20:46)
[2021-08-11] MEDS: DIVALPROEX SODIUM 250 MG DR TABLET PO SCH ×2 (08:40→20:46)
[2021-08-11] MEDS: QUEtiapine FUMARATE 200 MG TABLET PO SCH ×2 (08:41→20:55)
[2021-08-11 16:27] VITALS: BP 107/70
[2021-08-11] MEDS: TraZODone HCL 50 MG TABLET PO SCH (20:46)
[2021-08-12] MEDS: LEVOTHYROXINE SODIUM 100 MCG TABLET PO SCH (06:42)
[2021-08-12 08:00] VITALS: BP 115/72
[2021-08-12] MEDS: QUEtiapine FUMARATE 200 MG TABLET PO SCH ×2 (08:38→20:51)
[2021-08-12] MEDS: BENZTROPINE MESYLATE 1 MG TABLET PO SCH ×2 (08:38→20:50)
[2021-08-12] MEDS: DIVALPROEX SODIUM 250 MG DR TABLET PO SCH ×2 (08:38→20:51)
[2021-08-12 14:41] LABS: APPEARANCE,URINE CLEAR (CLEAR); BILIRUBIN,URINE NEGATIVE (NEGATIVE); GLUCOSE, URINE (UA) NEGATIVE (NEGATIVE); KETONES,URINE TRACE mg/dL (NEGATIVE); LEUKOCYTE ESTERASE ,URINE LARGE (NEGATIVE); NITRATE,URINE NEGATIVE (NEGATIVE); OCCULT BLOOD,URINE NEGATIVE (NEGATIVE); PROTEIN,URINE 30-70 mg/dL (NEGATIVE); SPECIFIC GRAVITIY, URINE 1.031 (1.003-1.030)
[2021-08-12 14:48] LABS: BACTERIA,URINE Moderate /HPF (None Seen); RBC,URINE 0-2 /HPF (0-2); SQUAMOUS EPITHELIAL CELL,UR Few /LPF (None Seen)
[2021-08-12 16:39] VITALS: BP 118/67
[2021-08-12] MEDS: TraZODone HCL 50 MG TABLET PO SCH (20:51)
[2021-08-13] MEDS: CEPHALEXIN MONOHYDRATE 500 MG CAPSULE PO SCH ×3 (00:18→16:22)
[2021-08-13] MEDS: LEVOTHYROXINE SODIUM 100 MCG TABLET PO SCH (06:50)
[2021-08-13 07:35] LABS: COVID AG,FIA SOURCE NASAL SWAB
[2021-08-13 08:30] VITALS: BP 133/99
[2021-08-13] MEDS: BENZTROPINE MESYLATE 1 MG TABLET PO SCH ×2 (08:38→20:21)
[2021-08-13] MEDS: QUEtiapine FUMARATE 200 MG TABLET PO SCH ×2 (08:38→20:19)
[2021-08-13] MEDS: DIVALPROEX SODIUM 250 MG DR TABLET PO SCH ×2 (08:38→20:19)
[2021-08-13 16:00] VITALS: BP 103/69
[2021-08-13] MEDS: TraZODone HCL 50 MG TABLET PO SCH (20:19)
[2021-08-14] MEDS: LEVOTHYROXINE SODIUM 100 MCG TABLET PO SCH (06:45)
[2021-08-14] MEDS: QUEtiapine FUMARATE 200 MG TABLET PO SCH ×2 (08:42→21:03)
[2021-08-14] MEDS: BENZTROPINE MESYLATE 1 MG TABLET PO SCH ×2 (08:42→21:04)
[2021-08-14] MEDS: DIVALPROEX SODIUM 250 MG DR TABLET PO SCH ×2 (08:43→21:03)
[2021-08-14 08:44] VITALS: BP 111/62
[2021-08-14] MEDS: CEPHALEXIN MONOHYDRATE 500 MG CAPSULE PO SCH ×2 (08:54→16:52)
[2021-08-14 16:08] VITALS: BP 105/60
[2021-08-14] MEDS: TraZODone HCL 50 MG TABLET PO SCH (21:03)
[2021-08-15] MEDS: LEVOTHYROXINE SODIUM 100 MCG TABLET PO SCH (06:19)
[2021-08-15 09:28] VITALS: BP 140/83
[2021-08-15] MEDS: QUEtiapine FUMARATE 200 MG TABLET PO SCH ×2 (10:23→20:03)
[2021-08-15] MEDS: DIVALPROEX SODIUM 250 MG DR TABLET PO SCH ×2 (10:23→20:03)
[2021-08-15] MEDS: CEPHALEXIN MONOHYDRATE 500 MG CAPSULE PO SCH ×2 (10:23→16:11)
[2021-08-15] MEDS: BENZTROPINE MESYLATE 1 MG TABLET PO SCH ×2 (10:23→20:03)
[2021-08-15 16:27] VITALS: BP 134/84
[2021-08-15] MEDS: TraZODone HCL 50 MG TABLET PO SCH (20:04)
[2021-08-16] MEDS: LEVOTHYROXINE SODIUM 100 MCG TABLET PO SCH (06:44)
[2021-08-16] MEDS: BENZTROPINE MESYLATE 1 MG TABLET PO SCH ×2 (08:29→20:28)
[2021-08-16] MEDS: QUEtiapine FUMARATE 200 MG TABLET PO SCH ×2 (08:29→20:28)
[2021-08-16] MEDS: DIVALPROEX SODIUM 250 MG DR TABLET PO SCH ×2 (08:29→20:29)
[2021-08-16] MEDS: CEPHALEXIN MONOHYDRATE 500 MG CAPSULE PO SCH ×2 (08:34→16:17)
[2021-08-16 08:36] VITALS: BP 130/74
[2021-08-16 16:06] VITALS: BP 97/80
[2021-08-16] MEDS: TraZODone HCL 50 MG TABLET PO SCH (20:28)
[2021-08-17] MEDS: LEVOTHYROXINE SODIUM 100 MCG TABLET PO SCH (06:50)
[2021-08-17 08:00] VITALS: BP 110/64
[2021-08-17] MEDS: BENZTROPINE MESYLATE 1 MG TABLET PO SCH ×2 (09:54→20:42)
[2021-08-17] MEDS: CEPHALEXIN MONOHYDRATE 500 MG CAPSULE PO SCH ×2 (09:54→16:37)
[2021-08-17] MEDS: DIVALPROEX SODIUM 500 MG DR TABLET PO SCH ×2 (09:54→20:41)
[2021-08-17] MEDS: QUEtiapine FUMARATE 200 MG TABLET PO SCH ×2 (09:55→20:42)
[2021-08-17 16:30] VITALS: BP 110/64
[2021-08-17] MEDS: TraZODone HCL 50 MG TABLET PO SCH (20:41)
[2021-08-18 00:35] VITALS: BP 120/83
[2021-08-18] MEDS: LEVOTHYROXINE SODIUM 100 MCG TABLET PO SCH (06:47)
[2021-08-18 08:31] VITALS: BP 106/62
[2021-08-18] MEDS: QUEtiapine FUMARATE 200 MG TABLET PO SCH ×2 (08:53→21:19)
[2021-08-18] MEDS: BENZTROPINE MESYLATE 1 MG TABLET PO SCH ×2 (08:53→21:20)
[2021-08-18] MEDS: DIVALPROEX SODIUM 500 MG DR TABLET PO SCH ×2 (08:53→21:20)
[2021-08-18 16:00] VITALS: BP 118/69
[2021-08-18 16:36] VITALS: BP 118/69
[2021-08-18] MEDS: TraZODone HCL 50 MG TABLET PO SCH (21:20)
[2021-08-19] MEDS: LEVOTHYROXINE SODIUM 100 MCG TABLET PO SCH (06:18)
[2021-08-19] MEDS: QUEtiapine FUMARATE 200 MG TABLET PO SCH ×2 (08:52→20:06)
[2021-08-19] MEDS: BENZTROPINE MESYLATE 1 MG TABLET PO SCH ×2 (08:52→20:05)
[2021-08-19] MEDS: DIVALPROEX SODIUM 500 MG DR TABLET PO SCH ×2 (08:52→20:05)
[2021-08-19 09:30] VITALS: BP 137/94
[2021-08-19 16:16] VITALS: BP 111/69
[2021-08-19] MEDS: TraZODone HCL 50 MG TABLET PO SCH (20:06)
[2021-08-20] MEDS: LEVOTHYROXINE SODIUM 100 MCG TABLET PO SCH (06:22)
[2021-08-20 07:30] LABS: COVID AG,FIA SOURCE NASAL SWAB
[2021-08-20 08:56] VITALS: BP 121/78
[2021-08-20] MEDS: BENZTROPINE MESYLATE 1 MG TABLET PO SCH ×2 (09:47→20:09)
[2021-08-20] MEDS: QUEtiapine FUMARATE 200 MG TABLET PO SCH ×2 (09:47→20:10)
[2021-08-20] MEDS: DIVALPROEX SODIUM 500 MG DR TABLET PO SCH ×2 (09:47→20:09)
[2021-08-20 16:15] VITALS: BP 115/76
[2021-08-20] MEDS: TraZODone HCL 50 MG TABLET PO SCH (20:09)
[2021-08-21] MEDS: LEVOTHYROXINE SODIUM 100 MCG TABLET PO SCH (06:48)
[2021-08-21 08:00] VITALS: BP 119/76
[2021-08-21] MEDS: BENZTROPINE MESYLATE 1 MG TABLET PO SCH ×2 (08:42→20:47)
[2021-08-21] MEDS: QUEtiapine FUMARATE 200 MG TABLET PO SCH ×2 (08:42→20:47)
[2021-08-21] MEDS: DIVALPROEX SODIUM 500 MG DR TABLET PO SCH ×2 (08:42→20:47)
[2021-08-21 16:39] VITALS: BP 99/69
[2021-08-21] MEDS: TraZODone HCL 50 MG TABLET PO SCH (20:48)
[2021-08-22] VITALS (8 sets, daily range): BP systolic 128–133; BP diastolic 67–96
[2021-08-22] MEDS: LEVOTHYROXINE SODIUM 100 MCG TABLET PO SCH (06:35)
[2021-08-22] MEDS: BENZTROPINE MESYLATE 1 MG TABLET PO SCH ×2 (08:50→20:14)
[2021-08-22] MEDS: DIVALPROEX SODIUM 500 MG DR TABLET PO SCH ×2 (08:50→20:14)
[2021-08-22] MEDS: QUEtiapine FUMARATE 200 MG TABLET PO SCH ×2 (08:50→20:14)
[2021-08-22] MEDS: TraZODone HCL 50 MG TABLET PO SCH (20:14)
[2021-08-23] MEDS: LEVOTHYROXINE SODIUM 100 MCG TABLET PO SCH (06:48)
[2021-08-23 08:56] VITALS: BP 112/69
[2021-08-23] MEDS: BENZTROPINE MESYLATE 1 MG TABLET PO SCH ×2 (09:16→20:05)
[2021-08-23] MEDS: DIVALPROEX SODIUM 500 MG DR TABLET PO SCH ×2 (09:16→20:05)
[2021-08-23] MEDS: QUEtiapine FUMARATE 200 MG TABLET PO SCH ×2 (09:18→20:05)
[2021-08-23 16:04] VITALS: BP 98/62
[2021-08-23 16:06] VITALS: BP 98/62
[2021-08-23] MEDS: TraZODone HCL 50 MG TABLET PO SCH (20:06)
[2021-08-24] MEDS: LEVOTHYROXINE SODIUM 100 MCG TABLET PO SCH (06:23)
[2021-08-24] MEDS: BENZTROPINE MESYLATE 1 MG TABLET PO SCH ×2 (08:56→20:02)
[2021-08-24] MEDS: QUEtiapine FUMARATE 200 MG TABLET PO SCH ×2 (08:56→20:02)
[2021-08-24] MEDS: DIVALPROEX SODIUM 500 MG DR TABLET PO SCH ×2 (08:56→20:02)
[2021-08-24 09:00] VITALS: BP 112/68
[2021-08-24 16:30] VITALS: BP 110/73
[2021-08-24] MEDS: TraZODone HCL 50 MG TABLET PO SCH (20:02)
[2021-08-25] MEDS: LEVOTHYROXINE SODIUM 100 MCG TABLET PO SCH (06:16)
[2021-08-25 08:57] VITALS: BP 124/79
[2021-08-25] MEDS: DIVALPROEX SODIUM 500 MG DR TABLET PO SCH ×2 (09:01→21:15)
[2021-08-25] MEDS: QUEtiapine FUMARATE 200 MG TABLET PO SCH ×2 (09:01→21:15)
[2021-08-25] MEDS: BENZTROPINE MESYLATE 1 MG TABLET PO SCH ×2 (09:01→21:15)
[2021-08-25 16:04] VITALS: BP 96/56
[2021-08-25] MEDS: TraZODone HCL 50 MG TABLET PO SCH (21:15)
[2021-08-26] MEDS: LEVOTHYROXINE SODIUM 100 MCG TABLET PO SCH (06:38)
[2021-08-26 08:53] VITALS: BP 126/86
[2021-08-26] MEDS: QUEtiapine FUMARATE 200 MG TABLET PO SCH ×2 (08:57→21:18)
[2021-08-26] MEDS: DIVALPROEX SODIUM 500 MG DR TABLET PO SCH ×2 (08:57→21:19)
[2021-08-26] MEDS: BENZTROPINE MESYLATE 1 MG TABLET PO SCH ×2 (08:57→21:17)
[2021-08-26 16:06] VITALS: BP 140/81
[2021-08-26] MEDS: TraZODone HCL 50 MG TABLET PO SCH (21:17)
[2021-08-27 06:12] VITALS: BP 123/84
[2021-08-27] MEDS: LEVOTHYROXINE SODIUM 100 MCG TABLET PO SCH (06:20)
[2021-08-27] MEDS: QUEtiapine FUMARATE 200 MG TABLET PO SCH ×2 (09:19→20:04)
[2021-08-27] MEDS: BENZTROPINE MESYLATE 1 MG TABLET PO SCH ×2 (09:19→20:04)
[2021-08-27] MEDS: DIVALPROEX SODIUM 500 MG DR TABLET PO SCH ×2 (09:19→20:04)
[2021-08-27 09:54] VITALS: BP 141/93
[2021-08-27 10:39] LABS: COVID AG,FIA SOURCE NASOPHARYNGEAL
[2021-08-27 16:01] VITALS: BP 100/70
[2021-08-27] MEDS: TraZODone HCL 50 MG TABLET PO SCH (20:04)
[2021-08-28] MEDS: LEVOTHYROXINE SODIUM 100 MCG TABLET PO SCH (06:40)
[2021-08-28 08:00] VITALS: BP 103/67
[2021-08-28] MEDS: QUEtiapine FUMARATE 200 MG TABLET PO SCH ×2 (09:14→21:16)
[2021-08-28] MEDS: DIVALPROEX SODIUM 500 MG DR TABLET PO SCH ×2 (09:14→21:16)
[2021-08-28] MEDS: BENZTROPINE MESYLATE 1 MG TABLET PO SCH ×2 (09:14→21:16)
[2021-08-28 16:00] VITALS: BP 103/58
[2021-08-28 20:22] VITALS: BP 107/77
[2021-08-28] MEDS: TraZODone HCL 50 MG TABLET PO SCH (21:16)
[2021-08-29] MEDS: LEVOTHYROXINE SODIUM 100 MCG TABLET PO SCH (06:29)
[2021-08-29 08:06] VITALS: BP 125/62
[2021-08-29] MEDS: DIVALPROEX SODIUM 500 MG DR TABLET PO SCH ×2 (09:51→20:34)
[2021-08-29] MEDS: QUEtiapine FUMARATE 200 MG TABLET PO SCH ×2 (09:51→20:34)
[2021-08-29] MEDS: BENZTROPINE MESYLATE 1 MG TABLET PO SCH ×2 (09:51→20:34)
[2021-08-29 16:00] VITALS: BP 115/79
[2021-08-29] MEDS: TraZODone HCL 50 MG TABLET PO SCH (20:34)
[2021-08-30] MEDS: LEVOTHYROXINE SODIUM 100 MCG TABLET PO SCH (06:25)
[2021-08-30 08:25] VITALS: BP 116/70
[2021-08-30] MEDS: DIVALPROEX SODIUM 500 MG DR TABLET PO SCH ×2 (08:37→20:19)
[2021-08-30] MEDS: BENZTROPINE MESYLATE 1 MG TABLET PO SCH ×2 (08:37→20:19)
[2021-08-30] MEDS: QUEtiapine FUMARATE 200 MG TABLET PO SCH ×2 (08:38→20:19)
[2021-08-30 16:09] VITALS: BP 116/69
[2021-08-30] MEDS: TraZODone HCL 50 MG TABLET PO SCH (20:19)
[2021-08-31] MEDS: LEVOTHYROXINE SODIUM 100 MCG TABLET PO SCH (06:05)
[2021-08-31] MEDS: DIVALPROEX SODIUM 500 MG DR TABLET PO SCH ×2 (08:23→20:10)
[2021-08-31] MEDS: BENZTROPINE MESYLATE 1 MG TABLET PO SCH ×2 (08:23→20:11)
[2021-08-31] MEDS: QUEtiapine FUMARATE 200 MG TABLET PO SCH ×2 (08:23→20:11)
[2021-08-31 08:30] VITALS: BP 118/59
[2021-08-31 16:31] VITALS: BP 111/68
[2021-08-31] MEDS: TraZODone HCL 50 MG TABLET PO SCH (20:10)
[2021-09-01] MEDS: LEVOTHYROXINE SODIUM 100 MCG TABLET PO SCH (06:07)
[2021-09-01 09:00] VITALS: BP 127/79
[2021-09-01] MEDS: DIVALPROEX SODIUM 500 MG DR TABLET PO SCH ×2 (09:14→20:23)
[2021-09-01] MEDS: BENZTROPINE MESYLATE 1 MG TABLET PO SCH ×2 (09:14→20:23)
[2021-09-01] MEDS: QUEtiapine FUMARATE 200 MG TABLET PO SCH ×2 (09:14→20:23)
[2021-09-01 16:41] VITALS: BP 95/61
[2021-09-01] MEDS: TraZODone HCL 50 MG TABLET PO SCH (20:23)
[2021-09-02] MEDS: LEVOTHYROXINE SODIUM 100 MCG TABLET PO SCH (06:59)
[2021-09-02] MEDS: BENZTROPINE MESYLATE 1 MG TABLET PO SCH ×2 (08:53→20:09)
[2021-09-02] MEDS: DIVALPROEX SODIUM 500 MG DR TABLET PO SCH ×2 (08:53→20:09)
[2021-09-02] MEDS: QUEtiapine FUMARATE 200 MG TABLET PO SCH ×2 (08:54→20:09)
[2021-09-02 10:07] VITALS: BP 100/72
[2021-09-02 16:00] VITALS: BP 114/73
[2021-09-02 17:07] VITALS: BP 117/73
[2021-09-02] MEDS: TraZODone HCL 50 MG TABLET PO SCH (20:09)
[2021-09-03] MEDS: LEVOTHYROXINE SODIUM 100 MCG TABLET PO SCH (06:14)
[2021-09-03 07:04] LABS: COVID AG,FIA SOURCE NASAL SWAB
[2021-09-03] MEDS: QUEtiapine FUMARATE 200 MG TABLET PO SCH ×2 (08:55→20:30)
[2021-09-03] MEDS: DIVALPROEX SODIUM 500 MG DR TABLET PO SCH ×2 (08:55→20:29)
[2021-09-03] MEDS: BENZTROPINE MESYLATE 1 MG TABLET PO SCH ×2 (08:55→20:29)
[2021-09-03 09:32] VITALS: BP 105/62
[2021-09-03 16:36] VITALS: BP 102/65
[2021-09-03] MEDS: TraZODone HCL 50 MG TABLET PO SCH (20:29)
[2021-09-04] MEDS: LEVOTHYROXINE SODIUM 100 MCG TABLET PO SCH (06:02)
[2021-09-04 08:00] VITALS: BP 114/71
[2021-09-04] MEDS: BENZTROPINE MESYLATE 1 MG TABLET PO SCH ×2 (08:34→20:10)
[2021-09-04] MEDS: QUEtiapine FUMARATE 200 MG TABLET PO SCH ×2 (08:35→20:10)
[2021-09-04] MEDS: DIVALPROEX SODIUM 500 MG DR TABLET PO SCH ×2 (08:35→20:10)
[2021-09-04 17:15] VITALS: BP 115/80
[2021-09-04] MEDS: TraZODone HCL 50 MG TABLET PO SCH (20:10)
[2021-09-05] MEDS: LEVOTHYROXINE SODIUM 100 MCG TABLET PO SCH (06:25)
[2021-09-05] MEDS: DIVALPROEX SODIUM 500 MG DR TABLET PO SCH ×2 (08:17→21:24)
[2021-09-05] MEDS: QUEtiapine FUMARATE 200 MG TABLET PO SCH ×2 (08:17→21:24)
[2021-09-05] MEDS: BENZTROPINE MESYLATE 1 MG TABLET PO SCH ×2 (08:17→21:25)
[2021-09-05 09:16] VITALS: BP 104/74
[2021-09-05 16:15] VITALS: BP 116/57
[2021-09-05] MEDS: TraZODone HCL 50 MG TABLET PO SCH (21:24)
[2021-09-06] MEDS: LEVOTHYROXINE SODIUM 100 MCG TABLET PO SCH (07:09)
[2021-09-06] MEDS: QUEtiapine FUMARATE 200 MG TABLET PO SCH ×2 (08:55→20:33)
[2021-09-06] MEDS: BENZTROPINE MESYLATE 1 MG TABLET PO SCH ×2 (08:55→20:34)
[2021-09-06] MEDS: DIVALPROEX SODIUM 500 MG DR TABLET PO SCH ×2 (08:55→20:34)
[2021-09-06 09:00] VITALS: BP 146/70
[2021-09-06] MEDS: TraZODone HCL 50 MG TABLET PO SCH (20:34)
[2021-09-07] MEDS: LEVOTHYROXINE SODIUM 100 MCG TABLET PO SCH (06:21)
[2021-09-07] MEDS: QUEtiapine FUMARATE 200 MG TABLET PO SCH ×2 (08:47→20:25)
[2021-09-07] MEDS: DIVALPROEX SODIUM 500 MG DR TABLET PO SCH ×2 (08:47→20:25)
[2021-09-07] MEDS: BENZTROPINE MESYLATE 1 MG TABLET PO SCH ×2 (08:47→20:25)
[2021-09-07 09:50] VITALS: BP 114/63
[2021-09-07] MEDS: TraZODone HCL 50 MG TABLET PO SCH (20:25)
[2021-09-08] MEDS: LEVOTHYROXINE SODIUM 100 MCG TABLET PO SCH (06:23)
[2021-09-08] MEDS: BENZTROPINE MESYLATE 1 MG TABLET PO SCH ×2 (08:36→20:34)
[2021-09-08] MEDS: DIVALPROEX SODIUM 500 MG DR TABLET PO SCH ×2 (08:36→20:33)
[2021-09-08] MEDS: QUEtiapine FUMARATE 200 MG TABLET PO SCH ×2 (08:36→20:33)
[2021-09-08 09:20] VITALS: BP 127/60
[2021-09-08 16:10] VITALS: BP 104/74
[2021-09-08] MEDS: TraZODone HCL 50 MG TABLET PO SCH (20:33)
[2021-09-09] MEDS: LEVOTHYROXINE SODIUM 100 MCG TABLET PO SCH (06:44)
[2021-09-09] MEDS: QUEtiapine FUMARATE 200 MG TABLET PO SCH ×2 (08:34→20:27)
[2021-09-09] MEDS: BENZTROPINE MESYLATE 1 MG TABLET PO SCH ×2 (08:34→20:27)
[2021-09-09] MEDS: DIVALPROEX SODIUM 500 MG DR TABLET PO SCH ×2 (08:34→20:27)
[2021-09-09 10:11] VITALS: BP 127/86
[2021-09-09 16:34] VITALS: BP 113/65
[2021-09-09] MEDS: TraZODone HCL 50 MG TABLET PO SCH (20:27)
[2021-09-10] MEDS: LEVOTHYROXINE SODIUM 100 MCG TABLET PO SCH (06:26)
[2021-09-10 08:00] VITALS: BP 124/81
[2021-09-10] MEDS: DIVALPROEX SODIUM 500 MG DR TABLET PO SCH ×2 (08:31→20:39)
[2021-09-10] MEDS: QUEtiapine FUMARATE 200 MG TABLET PO SCH ×2 (08:32→20:39)
[2021-09-10] MEDS: BENZTROPINE MESYLATE 1 MG TABLET PO SCH ×2 (08:32→20:39)
[2021-09-10 20:16] VITALS: BP 115/80
[2021-09-10] MEDS: TraZODone HCL 50 MG TABLET PO SCH (20:39)
[2021-09-11] MEDS: LEVOTHYROXINE SODIUM 100 MCG TABLET PO SCH (06:25)
[2021-09-11 07:21] LABS: COVID AG,FIA SOURCE NASAL SWAB
[2021-09-11 08:00] VITALS: BP 110/66
[2021-09-11] MEDS: DIVALPROEX SODIUM 500 MG DR TABLET PO SCH ×2 (11:36→20:03)
[2021-09-11] MEDS: QUEtiapine FUMARATE 200 MG TABLET PO SCH ×2 (11:36→20:03)
[2021-09-11] MEDS: BENZTROPINE MESYLATE 1 MG TABLET PO SCH ×2 (11:36→20:04)
[2021-09-11 16:04] VITALS: BP 128/82
[2021-09-11] MEDS: TraZODone HCL 50 MG TABLET PO SCH (20:04)
[2021-09-12] MEDS: LEVOTHYROXINE SODIUM 100 MCG TABLET PO SCH (06:30)
[2021-09-12 08:33] VITALS: BP 118/74
[2021-09-12] MEDS: DIVALPROEX SODIUM 500 MG DR TABLET PO SCH ×2 (08:57→20:50)
[2021-09-12] MEDS: BENZTROPINE MESYLATE 1 MG TABLET PO SCH ×2 (08:58→20:50)
[2021-09-12] MEDS: QUEtiapine FUMARATE 200 MG TABLET PO SCH ×2 (08:58→20:50)
[2021-09-12 16:15] VITALS: BP 99/66
[2021-09-12] MEDS: TraZODone HCL 50 MG TABLET PO SCH (20:50)
[2021-09-13] MEDS: LEVOTHYROXINE SODIUM 100 MCG TABLET PO SCH (06:33)
[2021-09-13] MEDS: DIVALPROEX SODIUM 500 MG DR TABLET PO SCH ×2 (08:25→20:47)
[2021-09-13] MEDS: BENZTROPINE MESYLATE 1 MG TABLET PO SCH ×2 (08:25→20:47)
[2021-09-13] MEDS: QUEtiapine FUMARATE 200 MG TABLET PO SCH ×2 (08:25→20:47)
[2021-09-13 08:31] VITALS: BP 121/78
[2021-09-13 16:05] VITALS: BP 104/68
[2021-09-13] MEDS: TraZODone HCL 50 MG TABLET PO SCH (20:46)
[2021-09-13 22:43] VITALS: BP 108/83
[2021-09-14] MEDS: LEVOTHYROXINE SODIUM 100 MCG TABLET PO SCH (07:00)
[2021-09-14] MEDS: QUEtiapine FUMARATE 200 MG TABLET PO SCH ×2 (09:09→20:34)
[2021-09-14] MEDS: DIVALPROEX SODIUM 500 MG DR TABLET PO SCH ×2 (09:09→20:34)
[2021-09-14] MEDS: BENZTROPINE MESYLATE 1 MG TABLET PO SCH ×2 (09:10→20:34)
[2021-09-14 09:19] VITALS: BP 127/70
[2021-09-14 17:07] VITALS: BP 116/66
[2021-09-14] MEDS: TraZODone HCL 50 MG TABLET PO SCH (20:34)
[2021-09-15] MEDS: LEVOTHYROXINE SODIUM 100 MCG TABLET PO SCH (06:24)
[2021-09-15] MEDS: QUEtiapine FUMARATE 200 MG TABLET PO SCH ×2 (08:45→20:02)
[2021-09-15] MEDS: BENZTROPINE MESYLATE 1 MG TABLET PO SCH ×2 (08:45→20:03)
[2021-09-15] MEDS: DIVALPROEX SODIUM 500 MG DR TABLET PO SCH ×2 (08:45→20:02)
[2021-09-15 09:00] VITALS: BP 133/82
[2021-09-15 16:00] VITALS: BP 105/69
[2021-09-15] MEDS: TraZODone HCL 50 MG TABLET PO SCH (20:03)
[2021-09-16] MEDS: LEVOTHYROXINE SODIUM 100 MCG TABLET PO SCH (06:05)
[2021-09-16 08:06] VITALS: BP 128/78
[2021-09-16] MEDS: DIVALPROEX SODIUM 500 MG DR TABLET PO SCH ×2 (09:36→20:19)
[2021-09-16] MEDS: BENZTROPINE MESYLATE 1 MG TABLET PO SCH ×2 (09:36→20:19)
[2021-09-16] MEDS: QUEtiapine FUMARATE 200 MG TABLET PO SCH ×2 (09:37→20:19)
[2021-09-16 16:05] VITALS: BP 109/70
[2021-09-16] MEDS: TraZODone HCL 50 MG TABLET PO SCH (20:19)
[2021-09-16 23:37] VITALS: BP 121/76
[2021-09-17] MEDS: LEVOTHYROXINE SODIUM 100 MCG TABLET PO SCH (06:09)
[2021-09-17 08:47] VITALS: BP 117/66
[2021-09-17] MEDS: DIVALPROEX SODIUM 500 MG DR TABLET PO SCH ×2 (10:01→20:09)
[2021-09-17] MEDS: BENZTROPINE MESYLATE 1 MG TABLET PO SCH ×2 (10:01→20:09)
[2021-09-17] MEDS: QUEtiapine FUMARATE 200 MG TABLET PO SCH ×2 (10:01→20:09)
[2021-09-17 16:11] VITALS: BP 107/65
[2021-09-17] MEDS: TraZODone HCL 50 MG TABLET PO SCH (20:09)
[2021-09-18 06:37] LABS: COVID AG,FIA SOURCE NASAL SWAB
[2021-09-18] MEDS: LEVOTHYROXINE SODIUM 100 MCG TABLET PO SCH (06:57)
[2021-09-18 08:15] VITALS: BP 102/68
[2021-09-18] MEDS: DIVALPROEX SODIUM 500 MG DR TABLET PO SCH ×2 (08:23→20:10)
[2021-09-18] MEDS: QUEtiapine FUMARATE 200 MG TABLET PO SCH ×2 (08:24→20:10)
[2021-09-18] MEDS: BENZTROPINE MESYLATE 1 MG TABLET PO SCH ×2 (08:24→20:10)
[2021-09-18 16:04] VITALS: BP 110/69
[2021-09-18] MEDS: TraZODone HCL 50 MG TABLET PO SCH (20:10)
[2021-09-19] MEDS: LEVOTHYROXINE SODIUM 100 MCG TABLET PO SCH (07:05)
[2021-09-19] MEDS: DIVALPROEX SODIUM 500 MG DR TABLET PO SCH ×2 (08:36→20:54)
[2021-09-19] MEDS: BENZTROPINE MESYLATE 1 MG TABLET PO SCH ×2 (08:37→20:55)
[2021-09-19] MEDS: QUEtiapine FUMARATE 200 MG TABLET PO SCH ×2 (08:37→20:55)
[2021-09-19 09:00] VITALS: BP 131/84
[2021-09-19 16:11] VITALS: BP 130/81
[2021-09-19] MEDS: TraZODone HCL 50 MG TABLET PO SCH (20:54)
[2021-09-20] MEDS: LEVOTHYROXINE SODIUM 100 MCG TABLET PO SCH (06:34)
[2021-09-20] MEDS: BENZTROPINE MESYLATE 1 MG TABLET PO SCH ×2 (08:29→20:34)
[2021-09-20] MEDS: DIVALPROEX SODIUM 500 MG DR TABLET PO SCH ×2 (08:29→20:34)
[2021-09-20] MEDS: QUEtiapine FUMARATE 200 MG TABLET PO SCH ×2 (08:29→20:34)
[2021-09-20 09:11] VITALS: BP 117/77
[2021-09-20 16:00] VITALS: BP 125/70
[2021-09-20] MEDS: TraZODone HCL 50 MG TABLET PO SCH (20:34)
[2021-09-21] MEDS: LEVOTHYROXINE SODIUM 100 MCG TABLET PO SCH (06:39)
[2021-09-21 08:40] VITALS: BP 144/79
[2021-09-21] MEDS: QUEtiapine FUMARATE 200 MG TABLET PO SCH ×2 (09:04→20:15)
[2021-09-21] MEDS: DIVALPROEX SODIUM 500 MG DR TABLET PO SCH ×2 (09:04→20:22)
[2021-09-21] MEDS: BENZTROPINE MESYLATE 1 MG TABLET PO SCH ×2 (09:04→20:15)
[2021-09-21 16:02] VITALS: BP 106/66
[2021-09-21] MEDS: TraZODone HCL 50 MG TABLET PO SCH (20:15)
[2021-09-22] MEDS: LEVOTHYROXINE SODIUM 100 MCG TABLET PO SCH (06:14)
[2021-09-22] MEDS: QUEtiapine FUMARATE 200 MG TABLET PO SCH ×2 (08:27→20:46)
[2021-09-22] MEDS: DIVALPROEX SODIUM 500 MG DR TABLET PO SCH ×2 (08:27→20:45)
[2021-09-22] MEDS: BENZTROPINE MESYLATE 1 MG TABLET PO SCH ×2 (08:28→20:45)
[2021-09-22 08:52] VITALS: BP 133/82
[2021-09-22 16:13] VITALS: BP 118/63
[2021-09-22] MEDS: TraZODone HCL 50 MG TABLET PO SCH (20:45)
[2021-09-23] MEDS: LEVOTHYROXINE SODIUM 100 MCG TABLET PO SCH (06:11)
[2021-09-23 08:06] VITALS: BP 127/80
[2021-09-23] MEDS: DIVALPROEX SODIUM 500 MG DR TABLET PO SCH ×2 (08:59→20:02)
[2021-09-23] MEDS: QUEtiapine FUMARATE 200 MG TABLET PO SCH ×2 (08:59→20:02)
[2021-09-23] MEDS: BENZTROPINE MESYLATE 1 MG TABLET PO SCH ×2 (08:59→20:02)
[2021-09-23 16:09] VITALS: BP 132/75
[2021-09-23] MEDS: TraZODone HCL 50 MG TABLET PO SCH (20:02)
[2021-09-24] MEDS: LEVOTHYROXINE SODIUM 100 MCG TABLET PO SCH (06:14)
[2021-09-24] MEDS: DIVALPROEX SODIUM 500 MG DR TABLET PO SCH ×2 (08:13→20:19)
[2021-09-24] MEDS: QUEtiapine FUMARATE 200 MG TABLET PO SCH ×2 (08:13→20:19)
[2021-09-24] MEDS: BENZTROPINE MESYLATE 1 MG TABLET PO SCH ×2 (08:14→20:20)
[2021-09-24 08:30] VITALS: BP 116/60
[2021-09-24 16:10] VITALS: BP 111/65
[2021-09-24 18:30] LABS: CALCIUM, TOTAL 8.5 mg/dL (8.8-10.5); CREATININE 0.98 mg/dL (0.60-1.30); POTASSIUM 4.5 mmol/L (3.5-5.1)
[2021-09-24] MEDS: TraZODone HCL 50 MG TABLET PO SCH (20:19)
[2021-09-25] MEDS: LEVOTHYROXINE SODIUM 100 MCG TABLET PO SCH (06:26)
[2021-09-25] MEDS: DIVALPROEX SODIUM 500 MG DR TABLET PO SCH ×2 (08:07→20:35)
[2021-09-25] MEDS: BENZTROPINE MESYLATE 1 MG TABLET PO SCH ×2 (08:08→20:35)
[2021-09-25] MEDS: QUEtiapine FUMARATE 200 MG TABLET PO SCH ×2 (08:08→20:35)
[2021-09-25 08:30] VITALS: BP 113/75
[2021-09-25 11:14] LABS: COVID AG,FIA SOURCE NASAL SWAB
[2021-09-25] MEDS: TraZODone HCL 50 MG TABLET PO SCH (20:35)
[2021-09-26] MEDS: LEVOTHYROXINE SODIUM 100 MCG TABLET PO SCH (06:59)
[2021-09-26] MEDS: BENZTROPINE MESYLATE 1 MG TABLET PO SCH ×2 (08:20→21:39)
[2021-09-26] MEDS: QUEtiapine FUMARATE 200 MG TABLET PO SCH ×2 (08:21→21:39)
[2021-09-26] MEDS: DIVALPROEX SODIUM 500 MG DR TABLET PO SCH ×2 (08:21→21:39)
[2021-09-26 08:30] VITALS: BP 133/90
[2021-09-26 16:18] VITALS: BP 100/70
[2021-09-26] MEDS: TraZODone HCL 50 MG TABLET PO SCH (21:39)
[2021-09-27] MEDS: LEVOTHYROXINE SODIUM 100 MCG TABLET PO SCH (07:01)
[2021-09-27 08:02] VITALS: BP 130/76
[2021-09-27] MEDS: DIVALPROEX SODIUM 500 MG DR TABLET PO SCH ×2 (08:37→20:21)
[2021-09-27] MEDS: BENZTROPINE MESYLATE 1 MG TABLET PO SCH ×2 (08:37→20:21)
[2021-09-27] MEDS: QUEtiapine FUMARATE 200 MG TABLET PO SCH ×2 (08:37→20:21)
[2021-09-27 16:10] VITALS: BP 109/69
[2021-09-27] MEDS: TraZODone HCL 50 MG TABLET PO SCH (20:21)
[2021-09-28] MEDS: LEVOTHYROXINE SODIUM 100 MCG TABLET PO SCH (06:27)
[2021-09-28 08:00] VITALS: BP 103/53
[2021-09-28] MEDS: DIVALPROEX SODIUM 500 MG DR TABLET PO SCH ×2 (08:22→20:26)
[2021-09-28] MEDS: BENZTROPINE MESYLATE 1 MG TABLET PO SCH ×2 (08:22→20:26)
[2021-09-28] MEDS: QUEtiapine FUMARATE 200 MG TABLET PO SCH ×2 (08:23→20:26)
[2021-09-28 11:00] LABS: BILIRUBIN,URINE NEGATIVE (NEGATIVE); GLUCOSE, URINE (UA) NEGATIVE (NEGATIVE); KETONES,URINE NEGATIVE (NEGATIVE); LEUKOCYTE ESTERASE ,URINE MODERATE (NEGATIVE); NITRATE,URINE POSITIVE (NEGATIVE); OCCULT BLOOD,URINE NEGATIVE (NEGATIVE); PROTEIN,URINE NEGATIVE (NEGATIVE); SPECIFIC GRAVITIY, URINE 1.015 (1.003-1.030); UROBILINOGEN,URINE <=1.0 mg/dL (<=1.0)
[2021-09-28 11:10] LABS: APPEARANCE,URINE HAZY (CLEAR)
[2021-09-28 11:17] LABS: RBC,URINE None Seen /HPF (0-2)
[2021-09-28 11:21] LABS: BACTERIA,URINE Many /HPF (None Seen)
[2021-09-28 16:51] VITALS: BP 108/63
[2021-09-28] MEDS: TraZODone HCL 50 MG TABLET PO SCH (20:26)
[2021-09-29] MEDS: LEVOTHYROXINE SODIUM 100 MCG TABLET PO SCH (06:32)
[2021-09-29] MEDS: DIVALPROEX SODIUM 500 MG DR TABLET PO SCH ×2 (08:45→20:19)
[2021-09-29] MEDS: BENZTROPINE MESYLATE 1 MG TABLET PO SCH ×2 (08:45→20:19)
[2021-09-29] MEDS: QUEtiapine FUMARATE 200 MG TABLET PO SCH ×2 (08:45→20:19)
[2021-09-29] MEDS: CEPHALEXIN MONOHYDRATE 500 MG CAPSULE PO SCH ×3 (08:46→16:27)
[2021-09-29 10:40] VITALS: BP 109/71
[2021-09-29 16:25] VITALS: BP 115/76
[2021-09-29] MEDS: TraZODone HCL 50 MG TABLET PO SCH (20:18)
[2021-09-30] MEDS: LEVOTHYROXINE SODIUM 100 MCG TABLET PO SCH (06:24)
[2021-09-30 06:42] LABS: ANION GAP 0 mmol/L (8-16); CALCIUM, TOTAL 8.6 mg/dL (8.8-10.5); CARBON DIOXIDE 29 mmol/L (22-29); CHLORIDE 98 mmol/L (98-107); CREATININE 0.91 mg/dL (0.60-1.30); GLUCOSE,RANDOM 85 mg/dL (70-110); POTASSIUM 4.5 mmol/L (3.5-5.1); SODIUM SERUM 127 mmol/L (136-145); UREA NITROGEN, BLOOD 15 mg/dL (7-18)
[2021-09-30 07:16] LABS: GLOMERULAR FILTR. RATE CALC > 60 mL/min (>60)
[2021-09-30 08:53] VITALS: BP 132/81
[2021-09-30] MEDS: BENZTROPINE MESYLATE 1 MG TABLET PO SCH ×2 (08:57→20:06)
[2021-09-30] MEDS: QUEtiapine FUMARATE 200 MG TABLET PO SCH ×2 (08:57→20:06)
[2021-09-30] MEDS: CEPHALEXIN MONOHYDRATE 500 MG CAPSULE PO SCH ×3 (08:58→16:06)
[2021-09-30] MEDS: DIVALPROEX SODIUM 500 MG DR TABLET PO SCH ×2 (08:58→20:06)
[2021-09-30 16:08] VITALS: BP 127/70
[2021-09-30] MEDS: TraZODone HCL 50 MG TABLET PO SCH (20:06)
[2021-10-01] MEDS: LEVOTHYROXINE SODIUM 100 MCG TABLET PO SCH (06:27)
[2021-10-01] MEDS: CEPHALEXIN MONOHYDRATE 500 MG CAPSULE PO SCH ×3 (08:13→15:59)
[2021-10-01] MEDS: BENZTROPINE MESYLATE 1 MG TABLET PO SCH ×2 (08:13→20:18)
[2021-10-01] MEDS: QUEtiapine FUMARATE 200 MG TABLET PO SCH ×2 (08:13→20:18)
[2021-10-01] MEDS: DIVALPROEX SODIUM 500 MG DR TABLET PO SCH ×2 (08:13→20:18)
[2021-10-01 09:52] VITALS: BP 150/97
[2021-10-01 16:44] VITALS: BP 116/76
[2021-10-01] MEDS: TraZODone HCL 50 MG TABLET PO SCH (20:18)
[2021-10-02] MEDS: LEVOTHYROXINE SODIUM 100 MCG TABLET PO SCH (06:51)
[2021-10-02 07:34] LABS: COVID AG,FIA SOURCE NASAL SWAB
[2021-10-02] MEDS: BENZTROPINE MESYLATE 1 MG TABLET PO SCH ×2 (08:57→20:42)
[2021-10-02] MEDS: QUEtiapine FUMARATE 200 MG TABLET PO SCH ×2 (08:57→20:42)
[2021-10-02] MEDS: DIVALPROEX SODIUM 500 MG DR TABLET PO SCH ×2 (08:57→20:42)
[2021-10-02] MEDS: CEPHALEXIN MONOHYDRATE 500 MG CAPSULE PO SCH ×3 (08:57→16:13)
[2021-10-02 09:20] VITALS: BP 118/78
[2021-10-02 16:34] VITALS: BP 113/71
[2021-10-02] MEDS: TraZODone HCL 50 MG TABLET PO SCH (20:42)
[2021-10-03] MEDS: LEVOTHYROXINE SODIUM 100 MCG TABLET PO SCH (06:12)
[2021-10-03 09:28] VITALS: BP 135/85
[2021-10-03] MEDS: DIVALPROEX SODIUM 500 MG DR TABLET PO SCH ×2 (09:42→20:34)
[2021-10-03] MEDS: CEPHALEXIN MONOHYDRATE 500 MG CAPSULE PO SCH ×3 (09:42→16:11)
[2021-10-03] MEDS: QUEtiapine FUMARATE 200 MG TABLET PO SCH ×2 (09:43→20:35)
[2021-10-03] MEDS: BENZTROPINE MESYLATE 1 MG TABLET PO SCH ×2 (09:43→20:35)
[2021-10-03 16:12] VITALS: BP 134/95
[2021-10-03] MEDS: TraZODone HCL 50 MG TABLET PO SCH (20:35)
[2021-10-04] MEDS: LEVOTHYROXINE SODIUM 100 MCG TABLET PO SCH (06:26)
[2021-10-04] MEDS: DIVALPROEX SODIUM 500 MG DR TABLET PO SCH ×2 (09:01→20:11)
[2021-10-04] MEDS: BENZTROPINE MESYLATE 1 MG TABLET PO SCH ×2 (09:01→20:11)
[2021-10-04] MEDS: QUEtiapine FUMARATE 200 MG TABLET PO SCH ×2 (09:01→20:11)
[2021-10-04] MEDS: CEPHALEXIN MONOHYDRATE 500 MG CAPSULE PO SCH ×3 (09:01→16:53)
[2021-10-04 16:17] VITALS: BP 127/74
[2021-10-04] MEDS: TraZODone HCL 50 MG TABLET PO SCH (20:11)
[2021-10-05] MEDS: LEVOTHYROXINE SODIUM 100 MCG TABLET PO SCH (06:51)
[2021-10-05 08:07] VITALS: BP 120/81
[2021-10-05] MEDS: QUEtiapine FUMARATE 200 MG TABLET PO SCH ×2 (08:40→20:11)
[2021-10-05] MEDS: DIVALPROEX SODIUM 500 MG DR TABLET PO SCH ×2 (08:40→20:11)
[2021-10-05] MEDS: BENZTROPINE MESYLATE 1 MG TABLET PO SCH ×2 (08:41→20:11)
[2021-10-05 16:47] VITALS: BP 100/69
[2021-10-05] MEDS: TraZODone HCL 50 MG TABLET PO SCH (20:11)
[2021-10-06] MEDS: LEVOTHYROXINE SODIUM 100 MCG TABLET PO SCH (07:06)
[2021-10-06 08:00] VITALS: BP 125/73
[2021-10-06] MEDS: BENZTROPINE MESYLATE 1 MG TABLET PO SCH ×2 (09:09→20:40)
[2021-10-06] MEDS: QUEtiapine FUMARATE 200 MG TABLET PO SCH ×2 (09:09→20:41)
[2021-10-06] MEDS: DIVALPROEX SODIUM 500 MG DR TABLET PO SCH ×2 (09:09→20:40)
[2021-10-06 10:06] LABS: CREATININE 0.99 mg/dL (0.60-1.30); POTASSIUM 4.5 mmol/L (3.5-5.1)
[2021-10-06 10:07] LABS: CALCIUM, TOTAL 8.6 mg/dL (8.8-10.5)
[2021-10-06 16:00] VITALS: BP 103/64
[2021-10-06] MEDS: TraZODone HCL 50 MG TABLET PO SCH (20:40)
[2021-10-07] MEDS: LEVOTHYROXINE SODIUM 100 MCG TABLET PO SCH (06:18)
[2021-10-07 08:00] VITALS: BP 130/76
[2021-10-07] MEDS: DIVALPROEX SODIUM 500 MG DR TABLET PO SCH ×2 (08:18→20:20)
[2021-10-07] MEDS: QUEtiapine FUMARATE 200 MG TABLET PO SCH ×2 (08:18→20:20)
[2021-10-07] MEDS: BENZTROPINE MESYLATE 1 MG TABLET PO SCH ×2 (08:18→20:20)
[2021-10-07 16:55] VITALS: BP 131/72
[2021-10-07 16:56] VITALS: BP 131/72
[2021-10-07] MEDS: TraZODone HCL 50 MG TABLET PO SCH (20:20)
[2021-10-08] MEDS: LEVOTHYROXINE SODIUM 100 MCG TABLET PO SCH (06:31)
[2021-10-08 08:06] VITALS: BP 126/74
[2021-10-08] MEDS: BENZTROPINE MESYLATE 1 MG TABLET PO SCH ×2 (09:02→20:48)
[2021-10-08] MEDS: DIVALPROEX SODIUM 500 MG DR TABLET PO SCH ×2 (09:02→20:48)
[2021-10-08] MEDS: QUEtiapine FUMARATE 200 MG TABLET PO SCH ×2 (09:02→20:48)
[2021-10-08 16:24] VITALS: BP 102/67
[2021-10-08] MEDS: TraZODone HCL 50 MG TABLET PO SCH (20:48)
[2021-10-09] MEDS: LEVOTHYROXINE SODIUM 100 MCG TABLET PO SCH (06:36)
[2021-10-09 07:42] LABS: COVID AG,FIA SOURCE NASAL SWAB
[2021-10-09 08:00] VITALS: BP 122/71
[2021-10-09] MEDS: BENZTROPINE MESYLATE 1 MG TABLET PO SCH ×2 (09:22→20:33)
[2021-10-09] MEDS: DIVALPROEX SODIUM 500 MG DR TABLET PO SCH ×2 (09:22→20:33)
[2021-10-09] MEDS: QUEtiapine FUMARATE 200 MG TABLET PO SCH ×2 (09:22→20:33)
[2021-10-09 16:00] VITALS: BP 103/69
[2021-10-09] MEDS: TraZODone HCL 50 MG TABLET PO SCH (20:33)
[2021-10-10] MEDS: LEVOTHYROXINE SODIUM 100 MCG TABLET PO SCH (06:17)
[2021-10-10 08:30] VITALS: BP 120/87
[2021-10-10] MEDS: DIVALPROEX SODIUM 500 MG DR TABLET PO SCH ×2 (08:47→20:48)
[2021-10-10] MEDS: BENZTROPINE MESYLATE 1 MG TABLET PO SCH ×2 (08:47→20:48)
[2021-10-10] MEDS: QUEtiapine FUMARATE 200 MG TABLET PO SCH ×2 (08:47→20:48)
[2021-10-10 16:46] VITALS: BP 119/78
[2021-10-10] MEDS: TraZODone HCL 50 MG TABLET PO SCH (20:48)
[2021-10-11] MEDS: LEVOTHYROXINE SODIUM 100 MCG TABLET PO SCH (06:06)
[2021-10-11 08:00] VITALS: BP 124/83
[2021-10-11] MEDS: DIVALPROEX SODIUM 500 MG DR TABLET PO SCH ×2 (08:53→21:03)
[2021-10-11] MEDS: QUEtiapine FUMARATE 200 MG TABLET PO SCH ×2 (08:54→21:03)
[2021-10-11] MEDS: BENZTROPINE MESYLATE 1 MG TABLET PO SCH ×2 (08:54→21:03)
[2021-10-11 16:09] VITALS: BP 100/60
[2021-10-11] MEDS: TraZODone HCL 50 MG TABLET PO SCH (21:03)
[2021-10-12] MEDS: LEVOTHYROXINE SODIUM 100 MCG TABLET PO SCH (06:14)
[2021-10-12] MEDS: QUEtiapine FUMARATE 200 MG TABLET PO SCH ×2 (08:40→20:27)
[2021-10-12] MEDS: DIVALPROEX SODIUM 500 MG DR TABLET PO SCH ×2 (08:40→20:27)
[2021-10-12] MEDS: BENZTROPINE MESYLATE 1 MG TABLET PO SCH ×2 (08:40→20:27)
[2021-10-12 08:51] VITALS: BP 149/91
[2021-10-12 16:25] VITALS: BP 109/68
[2021-10-12] MEDS: TraZODone HCL 50 MG TABLET PO SCH (20:27)
[2021-10-13] MEDS: LEVOTHYROXINE SODIUM 100 MCG TABLET PO SCH (06:27)
[2021-10-13 06:43] LABS: ANION GAP 0 mmol/L (8-16); CALCIUM, TOTAL 8.6 mg/dL (8.8-10.5); CARBON DIOXIDE 29 mmol/L (22-29); CHLORIDE 103 mmol/L (98-107); CREATININE 0.87 mg/dL (0.60-1.30); GLUCOSE,RANDOM 81 mg/dL (70-110); POTASSIUM 4.4 mmol/L (3.5-5.1); SODIUM SERUM 132 mmol/L (136-145); UREA NITROGEN, BLOOD 11 mg/dL (7-18)
[2021-10-13 06:46] LABS: GLOMERULAR FILTR. RATE CALC > 60 mL/min (>60)
[2021-10-13] MEDS: BENZTROPINE MESYLATE 1 MG TABLET PO SCH ×2 (08:46→21:22)
[2021-10-13] MEDS: QUEtiapine FUMARATE 200 MG TABLET PO SCH ×2 (08:46→21:22)
[2021-10-13] MEDS: DIVALPROEX SODIUM 500 MG DR TABLET PO SCH ×2 (08:46→21:22)
[2021-10-13 09:50] VITALS: BP 112/61
[2021-10-13 16:11] VITALS: BP 103/68
[2021-10-13] MEDS: TraZODone HCL 50 MG TABLET PO SCH (21:22)
[2021-10-14] MEDS: LEVOTHYROXINE SODIUM 100 MCG TABLET PO SCH (06:02)
[2021-10-14] MEDS: BENZTROPINE MESYLATE 1 MG TABLET PO SCH ×2 (08:29→20:15)
[2021-10-14] MEDS: QUEtiapine FUMARATE 200 MG TABLET PO SCH ×2 (08:29→20:15)
[2021-10-14] MEDS: DIVALPROEX SODIUM 500 MG DR TABLET PO SCH ×2 (08:29→20:15)
[2021-10-14 08:50] VITALS: BP 103/72
[2021-10-14 16:22] VITALS: BP 102/69
[2021-10-14] MEDS: TraZODone HCL 50 MG TABLET PO SCH (20:15)
[2021-10-15] MEDS: LEVOTHYROXINE SODIUM 100 MCG TABLET PO SCH (07:01)
[2021-10-15 08:07] VITALS: BP 106/73
[2021-10-15] MEDS: QUEtiapine FUMARATE 200 MG TABLET PO SCH ×2 (08:42→20:17)
[2021-10-15] MEDS: BENZTROPINE MESYLATE 1 MG TABLET PO SCH ×2 (08:42→20:17)
[2021-10-15] MEDS: DIVALPROEX SODIUM 500 MG DR TABLET PO SCH ×2 (08:42→20:17)
[2021-10-15 16:05] VITALS: BP 104/60
[2021-10-15] MEDS: TraZODone HCL 50 MG TABLET PO SCH (20:17)
[2021-10-16 06:38] LABS: COVID AG,FIA SOURCE NASAL SWAB
[2021-10-16] MEDS: LEVOTHYROXINE SODIUM 100 MCG TABLET PO SCH (06:48)
[2021-10-16 08:04] VITALS: BP 123/71
[2021-10-16] MEDS: DIVALPROEX SODIUM 500 MG DR TABLET PO SCH ×2 (08:23→20:59)
[2021-10-16] MEDS: BENZTROPINE MESYLATE 1 MG TABLET PO SCH ×2 (08:23→20:58)
[2021-10-16] MEDS: QUEtiapine FUMARATE 200 MG TABLET PO SCH ×2 (08:23→20:58)
[2021-10-16 16:19] VITALS: BP 115/79
[2021-10-16] MEDS: TraZODone HCL 50 MG TABLET PO SCH (20:59)
[2021-10-17] MEDS: LEVOTHYROXINE SODIUM 100 MCG TABLET PO SCH (06:15)
[2021-10-17 08:30] VITALS: BP 102/69
[2021-10-17] MEDS: BENZTROPINE MESYLATE 1 MG TABLET PO SCH ×2 (09:26→20:21)
[2021-10-17] MEDS: QUEtiapine FUMARATE 200 MG TABLET PO SCH ×2 (09:26→20:21)
[2021-10-17] MEDS: DIVALPROEX SODIUM 500 MG DR TABLET PO SCH ×2 (09:26→20:21)
[2021-10-17 16:34] VITALS: BP 105/65
[2021-10-17] MEDS: TraZODone HCL 50 MG TABLET PO SCH (20:21)
[2021-10-18] MEDS: LEVOTHYROXINE SODIUM 100 MCG TABLET PO SCH (06:30)
[2021-10-18] MEDS: DIVALPROEX SODIUM 500 MG DR TABLET PO SCH ×2 (09:07→20:21)
[2021-10-18] MEDS: QUEtiapine FUMARATE 200 MG TABLET PO SCH ×2 (09:07→20:21)
[2021-10-18] MEDS: BENZTROPINE MESYLATE 1 MG TABLET PO SCH ×2 (09:07→20:21)
[2021-10-18 09:44] VITALS: BP 126/78
[2021-10-18 16:21] VITALS: BP 136/86
[2021-10-18] MEDS: TraZODone HCL 50 MG TABLET PO SCH (20:21)
[2021-10-19] MEDS: LEVOTHYROXINE SODIUM 100 MCG TABLET PO SCH (06:21)
[2021-10-19] MEDS: BENZTROPINE MESYLATE 1 MG TABLET PO SCH ×2 (08:37→20:10)
[2021-10-19] MEDS: DIVALPROEX SODIUM 500 MG DR TABLET PO SCH ×2 (08:37→20:10)
[2021-10-19] MEDS: QUEtiapine FUMARATE 200 MG TABLET PO SCH ×2 (08:37→20:10)
[2021-10-19 10:42] VITALS: BP 119/83
[2021-10-19 16:24] VITALS: BP 116/68
[2021-10-19 17:49] LABS: ANION GAP 4 mmol/L (8-16); CALCIUM, TOTAL 8.8 mg/dL (8.8-10.5); CARBON DIOXIDE 31 mmol/L (22-29); CHLORIDE 100 mmol/L (98-107); CREATININE 0.75 mg/dL (0.60-1.30); GLUCOSE,RANDOM 102 mg/dL (70-110); POTASSIUM 4.7 mmol/L (3.5-5.1); SODIUM SERUM 135 mmol/L (136-145); UREA NITROGEN, BLOOD 12 mg/dL (7-18)
[2021-10-19 17:50] LABS: GLOMERULAR FILTR. RATE CALC > 60 mL/min (>60)
[2021-10-19] MEDS: TraZODone HCL 50 MG TABLET PO SCH (20:10)
[2021-10-20] MEDS: LEVOTHYROXINE SODIUM 100 MCG TABLET PO SCH (06:31)
[2021-10-20] MEDS: QUEtiapine FUMARATE 200 MG TABLET PO SCH ×2 (08:29→20:53)
[2021-10-20] MEDS: DIVALPROEX SODIUM 500 MG DR TABLET PO SCH ×2 (08:29→20:53)
[2021-10-20] MEDS: BENZTROPINE MESYLATE 1 MG TABLET PO SCH ×2 (08:29→20:53)
[2021-10-20 09:47] VITALS: BP 114/60
[2021-10-20 16:00] VITALS: BP 103/61
[2021-10-20] MEDS: TraZODone HCL 50 MG TABLET PO SCH (20:53)
[2021-10-21] MEDS: LEVOTHYROXINE SODIUM 100 MCG TABLET PO SCH (06:17)
[2021-10-21] MEDS: QUEtiapine FUMARATE 200 MG TABLET PO SCH ×2 (08:43→21:09)
[2021-10-21] MEDS: BENZTROPINE MESYLATE 1 MG TABLET PO SCH ×2 (08:43→21:09)
[2021-10-21] MEDS: DIVALPROEX SODIUM 500 MG DR TABLET PO SCH ×2 (08:43→21:09)
[2021-10-21] MEDS: TraZODone HCL 50 MG TABLET PO SCH (21:09)
[2021-10-22] MEDS: LEVOTHYROXINE SODIUM 100 MCG TABLET PO SCH (06:56)
[2021-10-22] MEDS: DIVALPROEX SODIUM 500 MG DR TABLET PO SCH ×2 (08:58→20:24)
[2021-10-22] MEDS: QUEtiapine FUMARATE 200 MG TABLET PO SCH ×2 (08:58→20:24)
[2021-10-22] MEDS: BENZTROPINE MESYLATE 1 MG TABLET PO SCH ×2 (08:58→20:24)
[2021-10-22] MEDS: TraZODone HCL 50 MG TABLET PO SCH (20:24)
[2021-10-23] MEDS: LEVOTHYROXINE SODIUM 100 MCG TABLET PO SCH (06:22)
[2021-10-23 07:11] LABS: COVID AG,FIA SOURCE NASAL SWAB
[2021-10-23] MEDS: QUEtiapine FUMARATE 200 MG TABLET PO SCH ×2 (09:27→21:45)
[2021-10-23] MEDS: BENZTROPINE MESYLATE 1 MG TABLET PO SCH ×2 (09:27→21:44)
[2021-10-23] MEDS: DIVALPROEX SODIUM 500 MG DR TABLET PO SCH ×2 (09:27→21:44)
[2021-10-23] MEDS: TraZODone HCL 50 MG TABLET PO SCH (21:44)
[2021-10-24] MEDS: LEVOTHYROXINE SODIUM 100 MCG TABLET PO SCH (06:19)
[2021-10-24] MEDS: DIVALPROEX SODIUM 500 MG DR TABLET PO SCH ×2 (09:14→20:56)
[2021-10-24] MEDS: BENZTROPINE MESYLATE 1 MG TABLET PO SCH ×2 (09:14→20:56)
[2021-10-24] MEDS: QUEtiapine FUMARATE 200 MG TABLET PO SCH ×2 (09:14→20:56)
[2021-10-24] MEDS: TraZODone HCL 50 MG TABLET PO SCH (20:56)
[2021-10-25] MEDS: LEVOTHYROXINE SODIUM 100 MCG TABLET PO SCH (06:21)
[2021-10-25] MEDS: BENZTROPINE MESYLATE 1 MG TABLET PO SCH ×2 (08:10→21:12)
[2021-10-25] MEDS: QUEtiapine FUMARATE 200 MG TABLET PO SCH ×2 (08:10→21:12)
[2021-10-25] MEDS: DIVALPROEX SODIUM 500 MG DR TABLET PO SCH ×2 (08:11→21:12)
[2021-10-25] MEDS: TraZODone HCL 50 MG TABLET PO SCH (21:12)
[2021-10-26] MEDS: LEVOTHYROXINE SODIUM 100 MCG TABLET PO SCH (06:43)
[2021-10-26] MEDS: QUEtiapine FUMARATE 200 MG TABLET PO SCH ×2 (09:11→20:11)
[2021-10-26] MEDS: DIVALPROEX SODIUM 500 MG DR TABLET PO SCH ×2 (09:11→20:11)
[2021-10-26] MEDS: BENZTROPINE MESYLATE 1 MG TABLET PO SCH ×2 (09:11→20:11)
[2021-10-26] MEDS: TraZODone HCL 50 MG TABLET PO SCH (20:11)
[2021-10-27] MEDS: LEVOTHYROXINE SODIUM 100 MCG TABLET PO SCH (06:41)
[2021-10-27 07:49] LABS: ANION GAP 3 mmol/L (8-16); CARBON DIOXIDE 32 mmol/L (22-29); CHLORIDE 102 mmol/L (98-107); CREATININE 0.81 mg/dL (0.60-1.30); GLUCOSE,RANDOM 82 mg/dL (70-110); POTASSIUM 4.8 mmol/L (3.5-5.1); SODIUM SERUM 137 mmol/L (136-145); UREA NITROGEN, BLOOD 10 mg/dL (7-18)
[2021-10-27 07:50] LABS: GLOMERULAR FILTR. RATE CALC > 60 mL/min (>60)
[2021-10-27] MEDS: DIVALPROEX SODIUM 500 MG DR TABLET PO SCH ×2 (08:53→20:42)
[2021-10-27] MEDS: QUEtiapine FUMARATE 200 MG TABLET PO SCH ×2 (08:53→20:43)
[2021-10-27] MEDS: BENZTROPINE MESYLATE 1 MG TABLET PO SCH ×2 (08:53→20:42)
[2021-10-27 09:00] VITALS: BP 107/71
[2021-10-27 16:30] VITALS: BP 101/66
[2021-10-27] MEDS: TraZODone HCL 50 MG TABLET PO SCH (20:42)
[2021-10-28] MEDS: LEVOTHYROXINE SODIUM 100 MCG TABLET PO SCH (06:17)
[2021-10-28 08:30] VITALS: BP 114/68
[2021-10-28] MEDS: QUEtiapine FUMARATE 200 MG TABLET PO SCH ×2 (09:12→20:22)
[2021-10-28] MEDS: BENZTROPINE MESYLATE 1 MG TABLET PO SCH ×2 (09:12→20:22)
[2021-10-28] MEDS: DIVALPROEX SODIUM 500 MG DR TABLET PO SCH ×2 (09:12→20:22)
[2021-10-28 16:00] VITALS: BP 113/73
[2021-10-28] MEDS: TraZODone HCL 50 MG TABLET PO SCH (20:22)
[2021-10-29] MEDS: LEVOTHYROXINE SODIUM 100 MCG TABLET PO SCH (06:06)
[2021-10-29 08:41] VITALS: BP 110/65
[2021-10-29] MEDS: BENZTROPINE MESYLATE 1 MG TABLET PO SCH (09:59)
[2021-10-29] MEDS: QUEtiapine FUMARATE 200 MG TABLET PO SCH (09:59)
[2021-10-29] MEDS: DIVALPROEX SODIUM 500 MG DR TABLET PO SCH (09:59)
[2021-10-29] MEDS ORDERED: DIVA-112 PO ×2 (11:29→13:05)
[2021-10-29] MEDS ORDERED: BENZ1TAB96 PO ×2 (11:29→13:05)
[2021-10-29] MEDS ORDERED: TRAZ-184 PO (13:05)
[2021-10-29] MEDS ORDERED: QUET200T PO (13:05)
== END 2021-10-29 14:30 | disposition home or self-care (01) | DRG 885 ==
LOC: EMS 17:27 → 3EX 08-01 02:15
PROVIDERS: ADMIT Psychiatry & Neurology Psychiatry; ATTEND Psychiatry & Neurology Psychiatry
DX: F20.0 Paranoid schizophrenia (principal); N39.0 Urinary tract infection, site not specified; D64.9 Anemia, unspecified; E03.9 Hypothyroidism, unspecified; Z20.822 Contact with and (suspected) exposure to COVID-19; K21.9 Gastro-esophageal reflux disease without esophagitis; Z59.00 Homelessness unspecified; Z79.899 Other long term (current) drug therapy
CPT/HCPCS: 80048; 80053; 80164; 80307; 81001; 81003; 82140; 84702; 85025; 87086; 99285; G0378; G0480